=== PATIENT | female | born 1975 | race Caucasian/White ===

== ENCOUNTER → 2016-11-18 | Outpatient (CLI) | payer MEDICAID ==
[2016-11-18 08:03] LABS: Basophils % (A) 1 %; CHCM 33.8; Eosinophils # (A) 0.2 k/uL (0-0.7); Eosinophils % (A) 5 %; HCT 44.2 % (34.0-46.0); HDW 2.54; HGB 14.6 gm/dL (11.4-16.0); Luc # (Auto) 0.13; Luc % (Auto) 3; Lymphocytes # (A) 1.3 k/uL (1.0-4.8); Lymphocytes % (A) 27 %; MCH 30.3 pg (25.0-35.0); MCV 91.9 fL (80.0-100.0); Mean Platelet Volume 6.5; Monocytes # (A) 0.3 k/uL (0-1.0); Monocytes % (A) 7 %; Neutrophils # (A) 2.7 k/uL (1.3-7.7); Neutrophils % (A) 57 %; RBC 4.81 m/uL (3.80-5.40); RDW 12.7 % (11.5-15.5); WBC 4.6 k/uL (3.8-10.6); WBC (Perox) 4.82
[2016-11-18 08:30] LABS: ALT 38 U/L (9-52); AST 21 U/L (14-36); Alkaline Phosphatase 95 U/L (38-126); Anion Gap 12 mmol/L; Blood Urea Nitrogen 18 mg/dL (7-17); Calcium 9.5 mg/dL (8.4-10.2); Carbon Dioxide 26 mmol/L (22-30); Chloride 105 mmol/L (98-107); Cholesterol 194 mg/dL (<200); Glucose 97 mg/dL (74-99); HDL Cholesterol 44 mg/dL (40-60); Non-African American GFR(MDRD) >60 (>60 ml/min/1.73 sqM); Potassium 4.8 mmol/L (3.5-5.1); Sodium 143 mmol/L (137-145); Total Bilirubin 0.8 mg/dL (0.2-1.3); Total Protein 7.3 g/dL (6.3-8.2); Triglycerides 103 mg/dL (<150)
== END | disposition home or self-care (01) ==
LOC: LABWHC1 07:20
PROVIDERS: ATTEND Family Medicine
DX: Z01.419 Encounter for gynecological examination (general) (routine) without abnormal findings (principal); E66.9 Obesity, unspecified; F41.9 Anxiety disorder, unspecified
CPT/HCPCS: 36415; 80053; 80061; 84443; 85025

== ENCOUNTER → 2016-11-24 | Outpatient (CLI) | payer MEDICAID ==
--- NOTE | 2016-11-25 11:32 | MM ---
Reason for exam: screening (asymptomatic). Last mammogram was performed 1 year and 6 months ago. History: Family history of premenopausal breast cancer in mother at age 31, breast cancer in grandmother at age 66, and breast cancer in maternal aunt. Physical Findings: A clinical breast exam by your physician is recommended on an annual basis and results should be correlated with mammographic findings. MG 3D Screening Mammo W/Cad Bilateral CC and MLO view(s) were taken. Prior study comparison: May 29, 2015, bilateral MG screening mammo w CAD. April 27, 2012, bilateral digital screening mammo w/CAD. The breast tissue is heterogeneously dense. This may lower the sensitivity of mammography. There is no discrete abnormality. No significant changes when compared with prior studies. ASSESSMENT: Negative, BI-RAD 1 RECOMMENDATION: Routine screening mammogram of both breasts in 1 year.
== END | disposition home or self-care (01) ==
LOC: RADMAMWWP 07:03
PROVIDERS: ATTEND Family Medicine
DX: Z12.31 Encounter for screening mammogram for malignant neoplasm of breast (principal); Z80.3 Family history of malignant neoplasm of breast
CPT/HCPCS: 77063; G0202

== ENCOUNTER → 2017-08-18 | Outpatient (CLI) | payer MEDICAID ==
--- NOTE | 2017-08-18 14:06 | US ---
EXAMINATION TYPE: US thyroid st tissue head/neck DATE OF EXAM: 08/18/2017 COMPARISON: NONE CLINICAL HISTORY: THYROID MASS E079. Pt states neck swelling, more on right side GLAND SIZE: Right Lobe: 3.7 x 1.3 x 1.3 cm cm Overall Parenchyma: homogenous Left Lobe: 3.9 x 1.2 x 1.3 cm Overall Parenchyma: homogeneous Isthmus Thickness: 0.2 cm Bilateral neck scanned, no evidence of lymphadenopathy. Bilateral thyroid appeared wnl Thyroid gland is overall small in size and homogeneous in appearance without worrisome nodule. IMPRESSION: Small sized thyroid without worrisome greater than 1 cm solid or cystic nodules seen bilaterally.
== END ==
LOC: RADUSWWP 13:37
PROVIDERS: ATTEND Emergency Medicine
DX: E07.9 Disorder of thyroid, unspecified (principal)
CPT/HCPCS: 76536

== ENCOUNTER → 2018-01-06 | Outpatient (CLI) | payer MEDICAID | END | disposition home or self-care (01) | LOC: LABMAIN 09:43 | PROVIDERS: ATTEND Physician Assistant | DX: R05 Cough (principal); R50.9 Fever, unspecified | CPT/HCPCS: 87502 ==

== ENCOUNTER → 2018-04-05 | Outpatient (CLI) | payer MEDICAID ==
--- NOTE | 2018-04-05 13:30 | MM ---
Reason for exam: screening (asymptomatic). Last mammogram was performed 1 year and 4 months ago. History: Family history of premenopausal breast cancer in mother at age 31, breast cancer in grandmother at age 66, and breast cancer in maternal aunt. Physical Findings: A clinical breast exam by your physician is recommended on an annual basis and results should be correlated with mammographic findings. MG 3D Screening Mammo W/Cad Bilateral CC and MLO view(s) were taken. Prior study comparison: November 24, 2016, bilateral MG 3d screening mammo w/cad. May 29, 2015, bilateral MG screening mammo w CAD. The breast tissue is heterogeneously dense. This may lower the sensitivity of mammography. No significant changes when compared with prior studies. ASSESSMENT: Negative, BI-RAD 1 RECOMMENDATION: Routine screening mammogram of both breasts in 1 year.
== END | disposition home or self-care (01) ==
LOC: RADMAMWWP 07:45
PROVIDERS: ATTEND Family Medicine
DX: Z12.31 Encounter for screening mammogram for malignant neoplasm of breast (principal)
CPT/HCPCS: 77063; 77067

== ENCOUNTER → 2018-06-24 | Outpatient (CLI) | payer MEDICAID ==
--- NOTE | 2018-06-24 14:38 | US ---
EXAMINATION TYPE: US transvaginal DATE OF EXAM: 06/24/2018 COMPARISON: Prior pelvic ultrasound May 31, 2015 CLINICAL HISTORY: N83.9 disorder of ovary. dub TECHNIQUE: Transvaginal (TV). Transvaginal sonographic images of the pelvis were acquired. EXAM MEASUREMENTS: Uterus: 8.3 x 4.5 x 5.0 cm Endometrial Stripe: 0.8 cm Right Ovary: 2.7 x 1.7 x 2.3 cm Left Ovary: 2.9 x 1.3 x 2.3 cm 1. Uterus: Anteverted multiple Nabothian cysts 2. Endometrium: wnl, IUD appears appropriately placed 3. Right Ovary: wnl 4. Left Ovary: wnl 5. Bilateral Adnexa: wnl 6. Posterior cul-de-sac: no free fluid seen Central linear hyperdensity consistent with IUD is felt satisfactory in position. Multiple nabothian cysts in the cervix are identified on current study. No free fluid is present. Both ovaries are seen. No suspicious adnexal lesions are present bilaterally. IMPRESSION: No suspicious ovarian or adnexal masses identified. Metallic IUD felt satisfactory in pos ition.
== END | disposition home or self-care (01) ==
LOC: RADUSWWP 14:06
PROVIDERS: ATTEND Family Medicine
DX: N93.8 Other specified abnormal uterine and vaginal bleeding (principal); N83.9 Noninflammatory disorder of ovary, fallopian tube and broad ligament, unspecified; R10.2 Pelvic and perineal pain; Z97.5 Presence of (intrauterine) contraceptive device
CPT/HCPCS: 76830

== ENCOUNTER 2019-12-24 13:19 | Emergency (ER) | payer MEDICAID ==
[2019-12-24] MEDS ORDERED: SODIUM CHLORIDE 0.9% 1,000 ML IV STA (13:37)
[2019-12-24 14:02] LABS: Basophils % (A) 1 %; Eosinophils # (A) 0.1 k/uL (0-0.7); Eosinophils % (A) 1 %; HCT 43.1 % (34.0-46.0); HGB 14.7 gm/dL (11.4-16.0); Lymphocytes % (A) 19 %; MCH 31.1 pg (25.0-35.0); MCHC 34.1 g/dL (31.0-37.0); Monocytes # (A) 0.2 k/uL (0-1.0); Monocytes % (A) 4 %; Neutrophils % (A) 75 %; Platelet Count 391 k/uL (150-450); RBC 4.74 m/uL (3.80-5.40); RDW 12.4 % (11.5-15.5); WBC 5.4 k/uL (3.8-10.6)
--- NOTE | 2019-12-24 14:04 | XR ---
EXAMINATION TYPE: XR chest 2V DATE OF EXAM: 12/24/2019 COMPARISON: 01/09/2009 HISTORY: Chest pain TECHNIQUE: FINDINGS: Heart and mediastinum are normal. Lungs are clear. Diaphragm is normal. Bony thorax appears normal. IMPRESSION: Normal chest. No change.
--- NOTE | 2019-12-24 14:11 | ED ---
Chest Pain HPI - General Chief Complaint: Chest Pain Stated Complaint: chest pain Time Seen by Provider: 12/24/19 13:27 Source: patient, RN notes reviewed Mode of arrival: ambulatory Limitations: no limitations - History of Present Illness Initial Comments: This is a 44-year-old female with no prior history of heart disease or lung disease who presents with complaints of the onset last evening of anterior chest tightness radiating to the center of her back with some feelings of shortness of breath she states is 2-3/10 in severity when it comes on. She had no recent fevers chills nausea vomiting sweats cough or other symptoms she states she is feeling very anxious however and believes this may be part of the etiology. She also has reflux and states it feels somewhat like that. She states she has been having sinus pressure especially on the left No other current modifying factors patient is a nonsmoker. MD Complaint: chest pain - Related Data Home Medications Medication Instructions Recorded Confirmed Famotidine [Pepcid] 20 mg PO ONCE PRN 12/24/19 12/24/19 Mag Hydrox/Aluminum Hyd/Simeth 30 ml PO ONCE PRN 12/24/19 12/24/19 [Mylanta Maximum Strength Liq] Multivitamins, Thera [Multivitamin 1 tab PO DAILY 12/24/19 12/24/19 (formulary)] Vitamin B Complex 1 cap PO DAILY 12/24/19 12/24/19 buPROPion HCL [Wellbutrin SR] 150 mg PO BID 12/24/19 12/24/19 Allergies Allergy/AdvReac Type Severity Reaction Status Date / Time cephalexin monohydrate Allergy Dyspnea Verified 12/24/19 13:24 [From Keflex] latex Allergy Dyspnea Verified 12/24/19 14:07 codeine AdvReac Hallucinati Verified 12/24/19 14:07 ons hydrocodone bitartrate AdvReac Rapid Verified 12/24/19 14:07 [From Vicodin] Heart Rate metoclopramide HCl AdvReac Confusion Verified 12/24/19 14:07 [From Reglan] sulfamethoxazole AdvReac Abdominal Verified 12/24/19 14:07 [From Bactrim] Pain trimethoprim [From Bactrim] AdvReac Abdominal Verified 12/24/19 14:07 Pain Review of Systems ROS Statement: Those systems with pertinent positive or pertinent negative responses have been documented in the HPI. ROS Other: All systems not noted in ROS Statement are negative. EKG Findings - EKG Results: EKG: interpreted by LIBBY CALABRESE (Sinus tachycardia rate of 104. Interval 126 QRS duration 80 QT since QTC 346/[address]-T wave changes) Past Medical History Past Medical History: GERD/Reflux History of Any Multi-Drug Resistant Organisms: None Reported Past Surgical History: Appendectomy, Cholecystectomy, Tonsillectomy Additional Past Surgical History / Comment(s): nose, tailbone Past Psychological History: No Psychological Hx Reported Smoking Status: Never smoker Past Alcohol Use History: Occasional Past Drug Use History: None Reported General Exam - General Exam Comments Initial Comments: This is a well-developed well-nourished awake alert oriented 3 female Limitations: no limitations General appearance: alert, anxious Head exam: Present: atraumatic, normocephalic, normal inspection Eye exam: Present: normal appearance, PERRL, EOMI. Absent: scleral icterus, conjunctival injection, periorbital swelling ENT exam: Present: normal exam, mucous membranes moist Neck exam: Present: normal inspection. Absent: tenderness, meningismus, lymphadenopathy Respiratory exam: Present: normal lung sounds bilaterally, chest wall tenderness (Tenderness palpation along the left costal sternal margin no step-off or crepitation). Absent: respiratory distress, wheezes, rales, rhonchi, stridor Cardiovascular Exam: Present: regular rate, normal rhythm, normal heart sounds. Absent: systolic murmur, diastolic murmur, rubs, gallop, clicks GI/Abdominal exam: Present: soft, normal bowel sounds. Absent: distended, tenderness, guarding, rebound, rigid Extremities exam: Present: normal inspection, full ROM, normal capillary refill. Absent: tenderness, pedal edema, joint swelling, calf tenderness Back exam: Present: normal inspection Neurological exam: Present: alert, oriented X3, CN II-XII intact Psychiatric exam: Present: normal affect, normal mood Skin exam: Present: warm, dry, intact, normal color. Absent: rash Course Vital Signs 12/24/19 12/24/19 13:21 14:27 Temperature 99.2 F Pulse Rate 107 H 97 Respiratory 18 18 Rate Blood Pressure 138/86 119/77 O2 Sat by Pulse 99 99 Oximetry - Reevaluation(s) Reevaluation #1: 12/24/19 14:22 I did review the imaging and report no acute findings. Chest Pain MDM - MDM I did reevaluate the patient she is having intermittent pain but it is repro ducible on the left costal sternal margin. No step-off or crepitation. The presentation is currently consistent with costochondritis she does recall that she was carrying a child recently admitted contributed to it. She was offered Toradol did not want any at this time she'll go home and take her Motrin I did recommend warm compresses. Disposition Clinical Impression: Costochondritis, Chest wall syndrome Disposition: HOME SELF-CARE Condition: Good Instructions (If sedation given, give patient instructions): Costochondritis (ED) Additional Instructions: Warm compresses to the affected area when necessary also it is okay to take your home ibuprofen. Is patient prescribed a controlled substance at d/c from ED?: No Referrals: Robb Mcmillan [Primary Care Provider] - 1-2 days
[2019-12-24 14:14] LABS: ALT 33 U/L (4-34); AST 32 U/L (14-36); African American GFR (CKD) >90 (>60 ml/min/1.73 sqM); Albumin 4.7 g/dL (3.5-5.0); Alkaline Phosphatase 107 U/L (38-126); Anion Gap 7 mmol/L; Blood Urea Nitrogen 17 mg/dL (7-17); Calcium 10.5 mg/dL (8.4-10.2); Carbon Dioxide 28 mmol/L (22-30); Chloride 104 mmol/L (98-107); Creatine Kinase 60 U/L (30-135); Glucose 121 mg/dL (74-99); Non-African American GFR(CKD) 90 (>60 ml/min/1.73 sqM); Potassium 4.1 mmol/L (3.5-5.1); Sodium 139 mmol/L (137-145); Total Bilirubin 0.5 mg/dL (0.2-1.3); Total Protein 7.8 g/dL (6.3-8.2)
[2019-12-24 14:23] LABS: D-Dimer 0.33 mg/L FEU (<0.60); INR 0.9 (<1.2); Prothrombin Time 9.5 sec (9.0-12.0)
[2019-12-24 14:27] LABS: Partial Thromboplastin Time 21.3 sec (22.0-30.0)
[2019-12-24] MEDS ORDERED: KETOROLAC 30 MG/ML 1 ML VIAL IVP STA (14:43)
[2019-12-24 15:24] VITALS: BP 125/81; PULSE 81; RESP 16; TEMP 98.3
== END 2019-12-24 15:24 | disposition home or self-care (01) ==
LOC: EC 13:19
DX: M94.0 Chondrocostal junction syndrome [Tietze] (principal); Z79.899 Other long term (current) drug therapy; Z88.1 Allergy status to other antibiotic agents; Z91.040 Latex allergy status; Z88.5 Allergy status to narcotic agent; Z88.8 Allergy status to other drugs, medicaments and biological substances; Z88.2 Allergy status to sulfonamides; Z53.29 Procedure and treatment not carried out because of patient's decision for other reasons
CPT/HCPCS: 36415; 71046; 80053; 82550; 83690; 83735; 83880; 84484; 85025; 85379; 85610; 85730; 93005; 96360; 99285

== ENCOUNTER → 2020-07-03 | Outpatient (CLI) | payer MEDICAID ==
--- NOTE | 2020-07-03 10:57 | MM ---
Reason for exam: screening (asymptomatic). Last mammogram was performed 2 years and 3 months ago. History: Family history of premenopausal breast cancer in mother at age 31, breast cancer in grandmother at age 66, and breast cancer in maternal aunt. Physical Findings: A clinical breast exam by your physician is recommended on an annual basis and results should be correlated with mammographic findings. MG 3D Screening Mammo W/Cad Bilateral CC and MLO view(s) were taken. Prior study comparison: April 05, 2018, bilateral MG 3d screening mammo w/cad. November 24, 2016, bilateral MG 3d screening mammo w/cad. The breast tissue is heterogeneously dense. This may lower the sensitivity of mammography. Benign appearing bilateral calcifications. No significant changes when compared with prior studies. ASSESSMENT: Benign, BI-RAD 2 RECOMMENDATION: Routine screening mammogram of both breasts in 1 year.
== END | disposition home or self-care (01) ==
LOC: RADMAMWWP 08:57
PROVIDERS: ATTEND Obstetrics & Gynecology
DX: Z12.31 Encounter for screening mammogram for malignant neoplasm of breast (principal)
CPT/HCPCS: 77063; 77067

== ENCOUNTER → 2020-07-17 | Outpatient (CLI) | payer MEDICAID ==
[2020-07-17 11:55] VITALS: BP 131/82; PULSE 77; RESP 20; TEMP 98.3
--- NOTE | 2020-07-17 12:40 | P.HPOB ---
History of Present Illness H&P Date: 07/17/20 Chief Complaint: The patient is here for her routine gynecologic exam. This is a 45-year-old 014 with an LMP of 06/11/2020. She has a ParaGard IUD in place which was placed in 2012. The patient states her menses are monthly but can vary by about 1 week. She states she has had occasional mild hot flashes. She is otherwise without complaints. Review of Systems She has lost about 11 pounds since her last visit here 5 years ago. She denies respiratory or cardiac problems. GI she has had some gastric reflux and has had to restart Nexium when necessary. This has been helpful. Past Medical History Past Medical History: GERD/Reflux Additional Past Medical History / Comment(s): IBS. 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 She has no other history of STDs. ParaGard IUD was placed in 2012. History of Any Multi-Drug Resistant Organisms: None Reported Past Surgical History: Appendectomy, Cholecystectomy, Tonsillectomy Additional Past Surgical History / Comment(s): nose, tailbone. Colonoscopy in her early 30s. Past Psychological History: No Psychological Hx Reported Smoking Status: Never smoker Past Alcohol Use History: Occasional (0-1 per month) Past Drug Use History: None Reported Additional History: She has been since 2014 and this is her second marriage. 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 - Past Family History Mother Family Medical History: Cancer Additional Family Medical History / Comment(s): Breast cancer. Maternal grandmother also had breast cancer. Father Family Medical History: Diabetes Mellitus Medications and Allergies Home Medications Medication Instructions Recorded Confirmed Type Mag Hydrox/Aluminum Hyd/Simeth 30 ml PO ONCE PRN 12/24/19 07/17/20 History [Mylanta Maximum Strength Liq] Multivitamins, Thera [Multivitamin 1 tab PO DAILY 12/24/19 07/17/20 History (formulary)] Vitamin B Complex 1 cap PO DAILY 12/24/19 07/17/20 History buPROPion HCL [Wellbutrin SR] 150 mg PO BID 12/24/19 07/17/20 History Esomeprazole Magnesium [NexIUM] 40 mg PO DAILY 07/17/20 07/17/20 History Paragard Iud 1 device VAGINAL DAILY 07/17/20 07/17/20 History Allergies Allergy/AdvReac Type Severity Reaction Status Date / Time cephalexin monohydrate Allergy Dyspnea Verified 07/17/20 11:51 [From Keflex] latex Allergy Dyspnea Verified 07/17/20 11:51 codeine AdvReac Hallucinati Verified 07/17/20 11:51 ons hydrocodone bitartrate AdvReac Rapid Verified 07/17/20 11:51 [From Vicodin] Heart Rate metoclopramide HCl AdvReac Confusion Verified 07/17/20 11:51 [From Reglan] sulfamethoxazole AdvReac Abdominal Verified 07/17/20 11:51 [From Bactrim] Pain trimethoprim [From Bactrim] AdvReac Abdominal Verified 07/17/20 11:51 Pain Exam Vital Signs Temp Pulse Resp BP Pulse Ox 07/17/20 11:52 98.3 F 77 20 131/82 97 Intake and Output 07/16/20 07/17/20 07/17/20 22:59 06:59 14:59 Other: Weight 75.296 kg Height 5 feet 4 inches, weight 166 pounds, BMI 28.5. This is a well-developed well-nourished white female who is alert and oriented times 3 in no acute distress. HEENT: Within normal limits. NECK: Supple without mass or thyromegaly. CHEST AND LUNGS: Clear to auscultation. HEART: Regular rate and rhythm. BREASTS: Are without mass or discharge. There is bilateral nipple inversion which she states she has had for many years. AXILLARY EXAM: Negative for adenopathy. BACK: Negative for CVA tenderness. There is a mole measuring 7 x 8 mm just of the right of the midline in the mid-portion of the back which appears benign ABDOMEN: Soft, nontender, without palpable masses. PELVIC EXAM: Normal external genitalia. Cervix and vagina appear normal. There is a in IUD string protruding from the cervix approximately 2.5 cm. There is no unusual discharge. There is no evidence of prolapse. The uterus is mi dposition, nongravid size and nontender. There are no palpable adnexal masses or tenderness. RECTAL EXAM: negative for mass or tenderness and is negative for occult blood. EXTREMITIES: Nontender. IMPRESSION: 1. 45-year-old premenopausal female with normal gynecologic exam. 2. ParaGard IUD is in place and was initially placed in 2012. PLAN: 1. Pap smear was performed. She states she had one done about 2 years ago by her PCP and she states it was normal. 2. Self breast awareness was discussed with the patient. 3. Screening mammogram was done on 07/03/2020 and was benign. 4. Osteoporosis prevention was discussed. I have stressed the importance of adequate calcium, vitamin D and regular exercise. Recommended amounts of calcium and vitamin D were also discussed. 5. She was advised to return in one year for her annual well woman exam.
--- NOTE | 2020-07-31 17:04 | P.PN ---
Progress Note - Text Progress Note Date: 07/31/20 OUTPATIENT FOLLOW-UP NOTE TEST(S)/RESULTS: Pap smear done on 07/17/2020 shows ASCUS. High-risk HPV testing is negative. METHOD OF NOTIFICATION: The patient was notified by phone. PATIENT COMMENTS: Her last Pap smear was done through Dr. Mcgowan, her PCP. Her last Pap smear approximately 2016 was negative per the patient. DIAGNOSIS: ASCUS Pap smear with negative high-risk HPV testing. DISCUSSION: Previous Pap smear in 2014 showed low-grade BASSAM. Colposcopic examination by Dr. Mejia at that time showed low-grade BASSAM. We have discussed how the negative high-risk HPV testing is very reassuring. We have also discussed how the ASCUS Pap smear is less abnormal than the previous low- grade BASSAM Pap smear in 2014. PLAN: Pap smear with high-risk HPV testing in 2-3 years. She was advised to return in one year for her annual well woman exam.
== END | disposition home or self-care (01) ==
LOC: WWCWWP 11:15
PROVIDERS: ATTEND Obstetrics & Gynecology
DX: Z53.9 Procedure and treatment not carried out, unspecified reason (principal)

== ENCOUNTER → 2020-08-21 | Outpatient (CLI) | payer MEDICAID ==
[2020-08-21 13:37] VITALS: BP 134/85; PULSE 91; RESP 18; TEMP 98.6
--- NOTE | 2020-08-21 14:45 | P.PN ---
Progress Note - Text Progress Note Date: 08/21/20 Chief Complaint: Vaginal bleeding for 4 weeks HPI: This is a 45-year-old 014 with an LNMP of 06/11/2020. She started having vaginal bleeding on 07/23/2020 and has been having some vaginal bleeding since then. She states that on 07/23/2020 the bleeding started after bearing down hard to have a bowel movement. She has had bleeding which has varied in color ranging from pink to red or brown. She states the bleeding has not been a flow like a menstrual period. She has passed small clots and occasionally has noticed some bits that looked like small pieces of tissue or sand. She has a ParaGard IUD in place since 2012. She has been having some cramping on the right side. She often has had some right-sided discomfort when bearing down even prior to these last few months. She has experienced some hot flashes especially at night during the past year and infrequently during the day. She does feel like she has pelvic pressure and on the pain scale is 01 or 2 out of 10. She denies any urinary tract infection symptoms. ROS: She denies fever, respiratory, cardiac, or GI problems. : She denies dysuria, urinary urgency or frequency. PE: Blood pressure: 134/85, Height: 5 feet 4-1/2 inches, Weight: 171 pounds, Temperature: 98.6, Pulse: 91. Pulse oximeter 99%. This is a well developed, well nourished, weight female who is alert and orientedx3, in no acute distress. Abdomen: Soft with minimal suprapubic tenderness without rebound tenderness. There are no palpable abdominal masses. Pelvic exam: Normal external genitalia. Cervix and vagina reveals small amount of dark menstrual type blood in the back of the vagina. The IUD string protrudes from the cervix approximately 2 cm. There are no vaginal lacerations. There is no cervical motion tenderness, however, the patient does feel pelvic pressure when I push on the cervix. The uterus is mid positioned nongravid size and nontender. There are no palpable adnexal masses or tenderness. Impression: 1. 45-year-old female with a four-week history of dysfunctional uterine bleeding after 40 days of amenorrhea. Differential diagnosis will include anovulatory dysfunctional uterine bleeding, bleeding from a displaced IUD and, less likely, . 2. Mild pelvic discomfort. 3. History of ParaGard IUD placed in 2012. 4. Possible perimenopause. Plan: 1. Blood tests will include FSH and hCG. The order slip was given to the patient for this. 2. Pelvic ultrasound was recommended. We will try to demonstrate the location of the IUD. 3. If the hCG test is negative, she will begin Provera 10 mg 1 daily by mouth 12 days. She will keep a menstrual calendar. She understands that she may have withdrawal bleeding which may be heavier after stopping the Provera after 12 days. The electronic prescription was sent to [facility] pharmacy at [facility] Time spent with the patient: 25 minutes
--- NOTE | 2020-08-22 09:26 | P.PN ---
Progress Note - Text Progress Note Date: 08/22/20 OUTPATIENT FOLLOW-UP NOTE TEST(S)/RESULTS: Test results from 08/21/2020 include FSH which was 7.8 and negative hCG METHOD OF NOTIFICATION: She was notified by phone. PATIENT COMMENTS: DIAGNOSIS: Non and premenopausal dysfunctional uterine bleeding DISCUSSION: We will proceed with a course of Provera 10 mg daily for 12 days. She is also scheduled for her pelvic ultrasound later this month. PLAN: As above
== END | disposition home or self-care (01) ==
LOC: WWCWWP 13:14
PROVIDERS: ATTEND Obstetrics & Gynecology
DX: Z53.9 Procedure and treatment not carried out, unspecified reason (principal)

== ENCOUNTER → 2020-08-21 | Outpatient (CLI) | payer MEDICAID ==
[2020-08-22 01:32] LABS: Follicle Stimulating Hormone 7.8 mIU/mL; HCG,Quantitative Serum <2.0 mIU/mL
== END | disposition home or self-care (01) ==
LOC: LABMAIN 14:47
PROVIDERS: ATTEND Obstetrics & Gynecology
DX: N93.8 Other specified abnormal uterine and vaginal bleeding (principal)
CPT/HCPCS: 36415; 83001; 84702

== ENCOUNTER → 2020-08-29 | Outpatient (CLI) | payer MEDICAID ==
--- NOTE | 2020-08-29 15:38 | US ---
EXAMINATION TYPE: US transvaginal DATE OF EXAM: 08/29/2020 COMPARISON: US CLINICAL HISTORY: Pelvic Pain N93.8. Intermittent right pelvic pain; forty days on menstrual cycle pe r patient; currently has IUD; TECHNIQUE: Transvaginal sonographic images were medically necessary to better assess the following a natomy: IUD and endometrium; patient's bladder was not full, thus TV US was provided to patient. Date of LMP: 40 days ago EXAM MEASUREMENTS: Uterus: 7.6 x 5.7 x 5.1 cm Endometrial Stripe: 1.5 cm Right Ovary: 2.7 x 2.6 x 1.3 cm Left Ovary: 2.9 x 2.8x 1.8 cm 1. Uterus: Retroverted; Multiple Nabothian Cysts seen in cervix with largest = 1.2 x 1.3 x 1.0cm; I UD noted within endometrium 2. Endometrium: unable to correlate thickness with LMP 40 days ago; IUD appears within normal locati on in mid and upper endometrium. 3. Right Ovary: multiple follicles with largest thick walled cyst and peripheral color flow = 1.5 x 1.2 x 1.0cm. 4. Left Ovary: multiple follicles with largest thick walled cyst = 2.0 x 1.6 x 1.6cm Spectral, color and waveform doppler imaging shows good arterial and venous flow within the ovaries ; there is no evidence for ovarian torsion. 5. Bilateral Adnexa: wnl 6. Posterior cul-de-sac: wnl IMPRESSION: 1. Cervical Nabothian cysts. 2. Bilateral ovarian follicles.
--- NOTE | 2020-09-04 13:35 | P.PN ---
Progress Note - Text Progress Note Date: 09/04/20 OUTPATIENT FOLLOW-UP NOTE TEST(S)/RESULTS: Pelvic ultrasound done on 08/29/2020 shows the IUD in the normal position in the endometrium. There are small follicular type cysts noted in both ovaries. METHOD OF NOTIFICATION: The patient was notified by phone. PATIENT COMMENTS: The patient states she did not take the Provera as recommended since when she picked up the medication her bleeding stopped. DIAGNOSIS: Dysfunctional uterine bleeding has resolved on its own. IUD is in normal position by the pelvic ultrasound. DISCUSSION: She had abnormal bleeding for nearly 4 weeks which started on 07/23/2020 and she states ended around 08/23/2020 prior to taking the Provera which was prescribed. PLAN: She will keep a menstrual calendar and call if she is having menstrual problems. She will hold off on taking the Provera at this time.
== END | disposition home or self-care (01) ==
LOC: RADUSWWP 14:45
PROVIDERS: ATTEND Obstetrics & Gynecology
DX: N88.8 Other specified noninflammatory disorders of cervix uteri (principal)
CPT/HCPCS: 76830

== ENCOUNTER → 2020-10-08 | Outpatient (CLI) | payer MEDICAID | END | disposition home or self-care (01) | LOC: LABWHC1 12:51 | PROVIDERS: ATTEND Emergency Medicine | DX: Z20.828 Contact with and (suspected) exposure to other viral communicable diseases (principal) | CPT/HCPCS: 36415; 86769 ==

== ENCOUNTER → 2021-02-28 | Outpatient (CLI) | payer MEDICAID ==
--- NOTE | 2021-04-02 11:29 | P.CEMON ---
This is a 30 day event monitor report. Baseline EKG sinus. Patient remained in sinus rhythm throughout the recording with occasional to frequent unifocal PVCs and episodes of sinus tachycardia. No sustained supraventricular or ventricular arrhythmias noted. No Sigmund bradyarrhythmias noted. Patient complained of occasional dizziness and not lightheadedness, not correlating with any significant events. Occasional correlation with PVCs, which is inconsistent. Final impression: #1. Sinus rhythm. #2. Frequent unifocal PVCs. #3. Patient has several episodes of dizziness and lightheadedness and irregular heartbeat and heart flutter withconsistent correlation with cardiac arrhythmias
--- NOTE | 2021-04-04 11:06 | EM ---
This is a 30 day event monitor report. Baseline EKG sinus. Patient remained in sinus rhythm throughout the recording with occasional to frequent unifocal PVCs and episodes of sinus tachycardia. No sustained supraventricular or ventricular arrhythmias noted. No Sigmund bradyarrhythmias noted. Patient complained of occasional dizziness and not lightheadedness, not correlating with any significant events. Occasional correlation with PVCs, which is inconsistent. Final impression: #1. Sinus rhythm. #2. Frequent unifocal PVCs. #3. Patient has several episodes of dizziness and lightheadedness and irregular heartbeat and heart flutter with consistent correlation with cardiac arrhythmias MTDD
== END | disposition home or self-care (01) ==
LOC: RADECHMAIN 11:58
PROVIDERS: ATTEND Family Medicine
DX: I49.3 Ventricular premature depolarization (principal)
CPT/HCPCS: 93270

== ENCOUNTER → 2021-05-02 | Outpatient (CLI) | payer MEDICAID ==
--- NOTE | 2021-05-02 10:48 | ECHOF ---
Referral Reason:frequent pvcs; R55 Syncope MEASUREMENTS -------- HEIGHT: 162.6 cm WEIGHT: 76.7 kg BP: RVIDd: 2.5 cm (< 3.3) IVSd: 1.0 cm (0.6 - 1.1) LVIDd: 3.2 cm (3.9 - 5.3) LVPWd: 1.0 cm (0.6 - 1.1) IVSs: 1.3 cm LVIDs: 2.6 cm LVPWs: 1.2 cm LA Diam: 3.0 cm (2.7 - 3.8) LAESV Index (A-L): 18.21 ml/m Ao Diam: 2.9 cm (2.0 - 3.7) AV Cusp: 2.0 cm (1.5 - 2.6) MV EXCURSION: 14.881 mm (> 18.000) MV EF SLOPE: 55 mm/s (70 - 150) EPSS: 0.5 cm MV E Matt: 0.52 m/s MV DecT: 167 ms MV A Matt: 0.81 m/s MV E/A Ratio: 0.64 RAP: 5.00 mmHg RVSP: 18.23 mmHg FINDINGS -------- Sinus rhythm. This was a technically good study. The left ventricular size is normal. Overall left ventricular systolic function is low-normal with, an EF between 50 - 55 %. The right ventricle is normal in size. Normal LA size by volume 22+/-6 ml/m2. The right atrial size is normal. The aortic valve is trileaflet, and appears structurally normal. No aortic stenosis or regurgitation. Mild mitral regurgitation is present. Mild tricuspid regurgitation present. Right ventricular systolic pressure is normal at < 35 mmHg. There is no pulmonic regurgitation present. The aortic root size is normal. There is no pericardial effusion. CONCLUSIONS -------- 1. The left ventricular size is normal. 2. Overall left ventricular systolic function is low-normal with, an EF between 50 - 55 %. 3. The right ventricle is normal in size. 4. Normal LA size by volume 22+/-6 ml/m2. 5. The right atrial size is normal. 6. The aortic valve is trileaflet, and appears structurally normal. No aortic stenosis or regurgitati on. 7. Mild mitral regurgitation is present. 8. Mild tricuspid regurgitation present. 9. The aortic root size is normal. 10. There is no pericardial effusion. CERTIFIED RETINAL ANGIOGRAPHER: Padma Bran RDCS
--- NOTE | 2021-05-02 13:32 | ECHOS ---
STRESS ECHOCARDIOGRAM DATE OF SERVICE: May 02, 2021. REFERRING PHYSICIAN: Dr. Sow. INDICATION: Chest pain. BASELINE HEART RATE: 82 BASELINE BLOOD PRESSURE: 121/86 MAXIMUM HEART RATE: 157 MAXIMUM BLOOD PRESSURE: 191/88 85% MPHR: 147 100% MPHR: 173 METS: 8.9 MAXIMUM STAGE REACHED: III TOTAL EXERCISE TIME: 8:50 STRESS DATA: Heart rate is 82, pressure is 121/86 mmHg. Baseline EKG showed sinus mechanism. The patient exercised on the treadmill according to James protocol for a total of 7 minutes and 22 seconds and achieved 8.9 METS. Max heart rate was 157, which is about 91% of maximum predicted heart rate. Maximum blood pressure was 171/58 mmHg. Baseline EKG showed sinus mechanism. The patient exercised on the treadmill according to James protocol for a total of 7 minutes and 22 seconds and achieved 8.9 METS. Max heart rate was 157, which is about 91% of maximum predicted heart rate and maximum blood pressure was 171/88 mmHg. Clinically, she only developed some dizziness and lightheadedness without any chest pain or chest discomfort and without any ST or T-wave abnormalities concerning for ischemia. ECHOCARDIOGRAM IMAGES: On echocardiogram images from parasternal long axis view, parasternal short axis view, apical 4 chamber and apical 2 chambers were obtained as the baseline images, at the peak of the heart rate as well as on recovery. The echocardiogram images showed good augmentation in the left ventricular systolic function without any evidence of wall motion abnormalities concerning for severe underlying coronary artery disease. CONCLUSION: 1. Good exercise tolerance. The patient exercised for almost 8 minutes. 2. Excellent blood pressure and heart rate in response to exercise. 3. No symptoms of chest pain or chest discomfort in response to exercise. Only the patient developed some dizziness and lightheadedness. 4. Normal EKG in response to exercise. 5. Good augmentation in all LV segments in response to exercise without any evidence of wall motion abnormalities concerning for ischemia. 6. Overall normal stress echocardiogram for the patient. MMODL / IJN: [id number] /
== END | disposition home or self-care (01) ==
LOC: RADECHMAIN 08:25
PROVIDERS: ATTEND Internal Medicine Clinical Cardiac Electrophysiology
DX: I08.1 Rheumatic disorders of both mitral and tricuspid valves (principal)
CPT/HCPCS: 93306; 93351; Q9950

== ENCOUNTER → 2021-06-11 | Outpatient (CLI) | payer MEDICAID ==
--- NOTE | 2021-06-11 10:55 | XR ---
EXAMINATION TYPE: XR knee complete LT DATE OF EXAM: 06/11/2021 COMPARISON: NONE HISTORY: Pain TECHNIQUE: Three views are submitted. FINDINGS: Joint spaces are preserved. Osseous structures are intact. No acute fracture seen. Small amount of fluid in the suprapatellar bursa. IMPRESSION: 1. No acute fracture or dislocation.
== END | disposition home or self-care (01) ==
LOC: RADXRMAIN 09:57
PROVIDERS: ATTEND Family Medicine
DX: M25.562 Pain in left knee (principal)

== ENCOUNTER → 2021-08-22 | Outpatient (CLI) | payer MEDICAID | END | disposition home or self-care (01) | LOC: LABMAIN 04:35 | PROVIDERS: ATTEND Emergency Medicine | DX: Z20.822 Contact with and (suspected) exposure to COVID-19 (principal) | CPT/HCPCS: 87635 ==

== ENCOUNTER → 2021-09-13 | Outpatient (CLI) | payer MEDICAID | END | disposition home or self-care (01) | LOC: LABMAIN 12:34 | PROVIDERS: ATTEND Emergency Medicine | DX: U07.1 COVID-19 (principal) | CPT/HCPCS: 36415; 86769 ==

== ENCOUNTER → 2021-10-13 | Outpatient (CLI) | payer MEDICAID | END | disposition home or self-care (01) | LOC: LABWHC1 15:29 | PROVIDERS: ATTEND Emergency Medicine | DX: U07.1 COVID-19 (principal) | CPT/HCPCS: 87635 ==

== ENCOUNTER → 2023-03-04 | Outpatient (CLI) | payer MEDICAID ==
[2023-03-04 08:11] LABS: Appearance,Urine Clear (Clear); Bacteria,Urine Rare /hpf; Bilirubin,Urine Negative (Negative); Blood,Urine Trace (Negative); Color,Urine Light Yellow; Glucose,Urine (UA) Negative (Negative); Hyaline Casts,Urine 1 /lpf (0-2); Ketones,Urine Negative (Negative); Leukocyte Esterase,Urine Large (Negative); Nitrite,Urine Negative (Negative); PH, Urine 6.5 (5.0-8.0); Protein,Urine Negative (Negative); Specific Gravity,Urine 1.011 (1.001-1.035); Squamous Epithelial Cell,Urine 1 /hpf (0-4); Urobilinogen,Urine <2.0 mg/dL (<2.0); WBC,Urine 2 /hpf (0-5)
== END | disposition home or self-care (01) ==
LOC: LABMAIN 07:45
PROVIDERS: ATTEND Physician Assistant
DX: R30.0 Dysuria (principal)
CPT/HCPCS: 81001

== ENCOUNTER → 2023-03-24 | Outpatient (CLI) | payer MEDICAID ==
[2023-03-24 10:29] VITALS: BP 119/86; PULSE 77; RESP 16; TEMP 97.8
--- NOTE | 2023-03-24 14:14 | P.HPOB ---
History of Present Illness H&P Date: 03/24/23 Chief Complaint: The patient is here for her routine gynecologic exam. This is a 48-year-old 014 with an LMP of 03/18/2023. She has a ParaGard in place and this has been in place since 2012. She did have 4 months of amenorrhea in a row in 2021, but since then she has been having monthly menstrual periods. Does have occasional hot flashes and night sweats but these are mild. She has had occasional spotting after sex especially right before a menstrual period. She has also been experiencing some achy right pelvic pain which she thinks might be her ovary during the past several months right before her menstrual period. She recently broke up with her and she is requesting STD screening. She states she did have blood STD testing earlier this year through her PCP which was negative per the patient. She denies any unusual discharge or genital symptoms. She states she was treated for Trichomonas that she believes was given to her by her . She denies any new sexual partners Review of Systems The patient has gained 19 pounds over the last year. She denies respiratory, cardiac, or G.I. problems. Past Medical History Past Medical History: GERD/Reflux Additional Past Medical History / Comment(s): IBS. 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 She has no other history of STDs. ParaGard IUD was placed in 2012. History of Any Multi-Drug Resistant Organisms: None Reported Past Surgical History: Appendectomy, Cholecystectomy, Tonsillectomy Additional Past Surgical History / Comment(s): nose, tailbone. Colonoscopy in her early 30s. Past Psychological History: No Psychological Hx Reported Smoking Status: Never smoker Past Alcohol Use History: Occasional (2 per month.) Past Drug Use History: None Reported Additional History: She has been since 2014 and this is her second marriage. She states she and her have in 2022. 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 - Past Family History Mother Family Medical History: Cancer Additional Family Medical History / Comment(s): Breast cancer. Maternal grandmother also had breast cancer. Father Family Medical History: Diabetes Mellitus Medications and Allergies Home Medications Medication Instructions Recorded Confirmed Type buPROPion HCL [Wellbutrin SR] 150 mg PO BID 12/24/19 03/24/23 History Esomeprazole Magnesium [NexIUM] 40 mg PO DAILY 07/17/20 03/24/23 History Paragard Iud 1 device VAGINAL DAILY 07/17/20 03/24/23 History Fexofenadine/Pseudoephedrine 1 each PO DAILY PRN 08/21/20 03/24/23 History [Thao-D 24 Hour Tablet] Fluticasone Nasal [place] [Flonase 2 spr EA NOSTRIL DAILY #16 gm 09/12/22 03/24/23 Rx Nasal [place]] Allergies Allergy/AdvReac Type Severity Reaction Status Date / Time cephalexin monohydrate Allergy Dyspnea Verified 03/24/23 10:24 [From Keflex] latex Allergy Dyspnea Verified 03/24/23 10:24 codeine AdvReac Hallucinati Verified 03/24/23 10:24 ons hydrocodone bitartrate AdvReac Rapid Verified 03/24/23 10:24 [From Vicodin] Heart Rate metoclopramide HCl AdvReac Confusion Verified 03/24/23 10:24 [From Reglan] sulfamethoxazole AdvReac Abdominal Verified 03/24/23 10:24 [From Bactrim] Pain trimethoprim [From Bactrim] AdvReac Abdominal Verified 03/24/23 10:24 Pain Exam Vital Signs Temp Pulse Resp BP Pulse Ox 03/24/23 10:25 97.8 F 77 16 119/86 97 Intake and Output 03/23/23 03/24/23 03/24/23 22:59 06:59 14:59 Other: Weight 83.007 kg Height 5 feet 4 inches, weight 183 pounds, BMI 31.4. This is a well-developed well-nourished white female who is alert and oriented times 3 in no acute distress. HEENT: Within normal limits. NECK: Supple without mass or thyromegaly. CHEST AND LUNGS: Clear to auscultation. HEART: Regular rate and rhythm. BREASTS: Are without mass or discharge. There is bilateral central nipple inversion which she states she has had for many years. AXILLARY EXAM: Negative for adenopathy. BACK: Negative for CVA tenderness. ABDOMEN: Soft, nontender, without palpable masses. PELVIC EXAM: Normal external genitalia. The vagina appears normal. There is no unusual discharge. The cervix has a benign-appearing polyp measuring approximately 7 x 4 mm protruding from the cervix. The IUD string is visible and measures approximately 1 cm. The cervix is slightly friable upon doing the Pap smear and infection screening. There is no cervical motion tenderness. There is no evidence of prolapse. The uterus is midposition, nongravid size and nontender. There are no palpable adnexal masses. There is mild right adnexal tenderness. The left adnexa is nontender. RECTAL EXAM: negative for mass or tenderness. There was a small amount of blood in the perineal area from the speculum exam and Hemoccult testing was not done from the rectal exam because of this. EXTREMITIES: Nontender. IMPRESSION: 1. 48-year-old perimenopausal female with slight menstrual irregularity who has a ParaGard IUD in place. 2. Benign-appearing cervical polypoid tissue measuring approximately 7 x 4 mm. This may be related to the occasional post coital spotting she has noted. 3. Right pelvic pain especially just prior to menstrual periods with mild right adnexal tenderness. Differential diagnosis will include right ovarian cyst, ovulatory discomfort, and pelvic adhesions. At this time I doubt PID or uterine perforation from the IUD. 4. Previous ASCUS Pap smear with negative high-risk HPV testing on 07/17/2020 and 11/19/2021. PLAN: 1. Pap smear cotest was performed. 2. GC and Chlamydia testing was obtained from the cervix. Affirm vaginitis panel was obtained from the vagina. STD screening with blood tests was deferred since she states she had this done through her PCP and was negative. 3. Pelvic ultrasound was recommended and the order slip was given to the patient for this. 4. Stress the option of removal of the cervical polyp. Since it has a benign appearance she would like to proceed with conservative management. If she continues to have postcoital spotting or abnormal vaginal bleeding, or if significant Pap smear abnormality is noted, we will consider removing this polypoid growth. 5. STD prevention was discussed. She states she will be abstinent at this time . I stressed importance of limiting sexual partners and I recommended condom use if she is sexually active. 6. She was advised to return in one year for her annual well woman exam and as needed.
== END ==
LOC: WWCWWP 10:18
PROVIDERS: ATTEND Obstetrics & Gynecology
DX: Z01.419 Encounter for gynecological examination (general) (routine) without abnormal findings (principal); N95.9 Unspecified menopausal and perimenopausal disorder; K21.9 Gastro-esophageal reflux disease without esophagitis; A74.9 Chlamydial infection, unspecified; N73.6 Female pelvic peritoneal adhesions (postinfective); N83.201 Unspecified ovarian cyst, right side; N84.1 Polyp of cervix uteri; K58.9 Irritable bowel syndrome, unspecified; Z80.3 Family history of malignant neoplasm of breast; Z88.2 Allergy status to sulfonamides; Z88.5 Allergy status to narcotic agent; Z88.1 Allergy status to other antibiotic agents; Z88.8 Allergy status to other drugs, medicaments and biological substances; Z90.49 Acquired absence of other specified parts of digestive tract; Z91.040 Latex allergy status; Z97.5 Presence of (intrauterine) contraceptive device

== ENCOUNTER → 2023-04-17 | Outpatient (CLI) | payer MEDICAID ==
--- NOTE | 2023-04-17 12:00 | US ---
EXAMINATION TYPE: US pelvic complete DATE OF EXAM: 04/17/2023 COMPARISON: US CLINICAL INDICATION: Female, 48 years old with history of R10.2 PELVIC PAIN; Pt states RLQ pain, IUD in place x 10 years TECHNIQUE: Transabdominal (TA). Transabdominal sonographic images of the pelvis were acquired. Date of LMP: 04/16/2023 EXAM MEASUREMENTS: Uterus: 8.7 x 5.1 x 6.2 cm Endometrial Stripe: 0.6 cm Right Ovary: 2.7 x 2.1 x 1.2 cm Left Ovary: 2.9 x 2.6 x 1.9 cm 1. Uterus: Anteverted IUD in upper endometrial canal, Multiple Nabothian cysts in cervix 2. Endometrium: wnl 3. Right Ovary: wnl 4. Left Ovary: Dominant follicle= 1.5 cm 5. Bilateral Adnexa: wnl 6. Posterior cul-de-sac: wnl Urinary bladder is sonolucent. Posterior wall is normal. IMPRESSION: 1. IUD positioned within the endometrial canal. 2. Left ovarian cyst
--- NOTE | 2023-04-17 13:21 | P.PN ---
Progress Note - Text Progress Note Date: 04/17/23 OUTPATIENT FOLLOW-UP NOTE TEST(S)/RESULTS: Pelvic ultrasound on 04/17/2023 showed a 1.5 cm follicular-type cyst on the left ovary. The right ovary was within normal limits. The uterus revealed an IUD properly positioned and the endometrial cavity. METHOD OF NOTIFICATION: The patient was notified by phone on 04/17/2023. PATIENT COMMENTS: Patient believes she is getting a yeast infection after taking Flagyl for BV. She has noticed some genital itching and a slight cottage cheeselike discharge. She is on the last day of taking her Flagyl. DIAGNOSIS: Normal pelvic ultrasound with normal IUD placement and small follicular physiologic left ovarian cyst. DISCUSSION: I will treat her with Diflucan 150 mg by mouth every 48 hours 2 doses. The electronic prescription will be sent to [facility] pharmacy in [facility]. She was instructed to call she's having increasing right pelvic pain or intermenstrual bleeding. PLAN: As above. She was advised to return in one year for her annual well woman exam and as needed.
--- NOTE | 2023-04-20 08:09 | MM ---
Reason for Exam: Screening (asymptomatic). Last mammogram was performed 1 year(s) and 5 month(s) ago. Patient History: Menarche at age 11. First Full-Term at age 16. Perimenopausal. Maternal grandmother had breast cancer, age 66. Maternal aunt had breast cancer. Mother had breast cancer, age 31. Risk Values: Enriqueta 5 year model risk: 1.7%. NCI Lifetime model risk: 16.3%. Prior Study Comparison: 04/05/2018 Bilateral Screening Mammogram, [facility]. 07/03/2020 Bilateral Screening Mammogram, [facility]. 11/19/2021 Bilateral Screening Mammogram, [facility]. Tissue Density: The breast tissue is heterogeneously dense. This may lower the sensitivity of mammography. Findings: Analyzed By CAD. There is no suspicious group of microcalcifications or new suspicious mass in either breast. Overall Assessment: Benign, BI-RAD 2 Management: Screening Mammogram of both breasts in 1 year. . Patient should continue monthly self-breast exams. A clinical breast exam by your physician is recommended on an annual basis. This exam should not preclude additional follow-up of suspicious palpable abnormalities. Note on Enriqueta scores and lifetime risk: 1. A Enriqueta score greater than 3% is considered moderate risk. If this is the case, consider specialist referral to assess eligibility for a risk reducing agent. 2. If overall lifetime risk for the development of breast cancer is 20% or higher, the patient may qualify for future screening with alternating mammogram and breast MRI. Electronically signed and approved by: Dimas Webster M.D. Radiologis
== END | disposition home or self-care (01) ==
LOC: RADUSWWP 10:19
PROVIDERS: ATTEND Obstetrics & Gynecology
DX: Z12.31 Encounter for screening mammogram for malignant neoplasm of breast (principal); N83.202 Unspecified ovarian cyst, left side; R10.2 Pelvic and perineal pain; Z97.5 Presence of (intrauterine) contraceptive device; Z80.3 Family history of malignant neoplasm of breast
CPT/HCPCS: 76856; 77063; 77067

== ENCOUNTER 2023-05-10 13:45 | Emergency (ER) | payer MEDICAID ==
[2023-05-10 13:52] VITALS: BP 152/71; PULSE 84; RESP 16; TEMP 98.6
[2023-05-10] MEDS ORDERED: TOPICAL SKIN ADHESIVE 1 EACH AMP TOPICAL ONE (13:52)
--- NOTE | 2023-05-10 13:56 | ED ---
Wound/Laceration HPI - General Chief Complaint: Wound/Laceration Stated Complaint: facial laceration Time Seen by Provider: 05/10/23 13:52 Source: patient, RN notes reviewed Mode of arrival: ambulatory Limitations: no limitations - History of Present Illness Initial Comments: This is a 48-year-old female who presents to the emergency department for a fac ial laceration. States that she was remodeling her house, when a light fixture came down and hit her in the right cheek. Her tetanus vaccine is up-to-date. She does complain of some mild pain. Denies any loss of consciousness. Not taking any blood thinners. Denies any fevers, chills, sore throat, cough, dyspnea, chest pain, palpitations, abdominal pain, nausea, vomiting, diarrhea, or back pain. - Related Data Home Medications Medication Instructions Recorded Confirmed buPROPion HCL [Wellbutrin SR] 150 mg PO BID 12/24/19 03/24/23 Esomeprazole Magnesium [NexIUM] 40 mg PO DAILY 07/17/20 03/24/23 Paragard Iud 1 device VAGINAL DAILY 07/17/20 03/24/23 Fexofenadine/Pseudoephedrine 1 each PO DAILY PRN 08/21/20 03/24/23 [Thao-D 24 Hour Tablet] Previous Rx's Medication Instructions Recorded Fluticasone Nas[address] [Flonase 2 spr EA NOSTRIL DAILY #16 g[address] 09/12/[address]] metroNIDAZOLE [Flagyl] 500 mg PO BID 7 Days #14 tab 04/08/23 Fluconazole [Diflucan] 150 mg PO DIRECTED #2 tab 04/17/23 Ibuprofen [Motrin] 800 mg PO Q6HR #60 tab 05/01/23 Allergies Allergy/AdvReac Type Severity Reaction Status Date / Time cephalexin monohydrate Allergy Dyspnea Verified 05/10/23 13:52 [From Keflex] latex Allergy Dyspnea Verified 05/10/23 13:52 codeine AdvReac Hallucinati Verified 05/10/23 13:52 ons hydrocodone bitartrate AdvReac Rapid Verified 05/10/23 13:52 [From Vicodin] Heart Rate metoclopramide HCl AdvReac Confusion Verified 05/10/23 13:52 [From Reglan] sulfamethoxazole AdvReac Abdominal Verified 05/10/23 13:52 [From Bactrim] Pain trimethoprim [From Bactrim] AdvReac Abdominal Verified 05/10/23 13:52 Pain Review of Systems ROS Statement: Those systems with pertinent positive or pertinent negative responses have been documented in the HPI. ROS Other: All systems not noted in ROS Statement are negative. 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 She has no other history of STDs. ParaGard IUD was placed in 2012. History of Any Multi-Drug Resistant Organisms: None Reported Past Surgical History: Appendectomy, Cholecystectomy, Tonsillectomy Additional Past Surgical History / Comment(s): nose, tailbone. Colonoscopy in her early 30s. Past Psychological History: No Psychological Hx Reported Smoking Status: Never smoker Past Alcohol Use History: Occasional Past Drug Use History: None Reported - Past Family History Mother Family Medical History: Cancer Additional Family Medical History / Comment(s): Breast cancer. Maternal grandmother also had breast cancer. Father Family Medical History: Diabetes Mellitus General Exam Limitations: no limitations General appearance: alert, in no apparent distress Head exam: Present: normocephalic, other (1 cm jagged vertical laceration to the right cheek. No active bleeding.) Respiratory exam: Present: normal lung sounds bilaterally. Absent: respiratory distress, wheezes, rales, rhonchi, stridor Cardiovascular Exam: Present: regular rate, normal rhythm, normal heart sounds. Absent: systolic murmur, diastolic murmur, rubs, gallop, clicks Neurological exam: Present: alert, oriented X3, CN II-XII intact Psychiatric exam: Present: normal affect, normal mood Course Vital Signs 05/10/23 13:50 Temperature 98.6 F Pulse Rate 84 Respiratory 16 Rate Blood Pressure 152/71 O2 Sat by Pulse 97 Oximetry Procedures - Laceration Laceration #1 Consent Obtained: verbal consent Indication: laceration Site: face Size (cm): 1 Description: irregular Depth: simple, single layer Size of Sutures: other (Exofin) Medical Decision Making - Medical Decision Making This is a 48-year-old female who presents to the emergency department for a facial laceration. Was pt. sent in by a medical professional or institution? @ -No Did you speak to anyone other than the patient for history? @ -No Did you review nursing and triage notes? @ -Yes, and I agree, it is accurate with regards to the patient's symptoms. Were old charts reviewed? @ -No Differential Diagnosis? @ -Not applicable EKG interpreted by me (3pts min.)? @ -Not obtained X-rays interpreted by me (1pt min.)? @ -Not obtained CT interpreted by me (1pt min.)? @ -Not obtained U/S interpreted by me (1pt. min.)? @ -Not obtained What testing was considered but not performed? (CT, X-rays, U/S, labs)? Why? @ -None What meds were considered but not given? Why? @ -None Did you discuss the management of the patient with other professionals? @ -No Did you reconcile home meds? @ -No Was smoking cessation discussed for >3mins.? @ -No Was critical care preformed (if so, how long)? @ -No Were there social determinants of health that impacted care today? How? (Homelessness, low income, unemployed, alcoholism, drug addiction, transportation, low edu. Level, literacy, decrease access to med. care, care home, rehab)? @ -No Was there de-escalation of care discussed even if they declined? (Discuss DNR or withdrawal of care, Hospice)? @ -No What co-morbidities impacted this encounter? (DM, HTN, Smoking, COPD, CAD, Cancer, CVA, Hep., AIDS, mental health diagnosis, sleep apnea, morbid obesity)? @ -None Was patient admitted / discharged? @ -Discharged. Discussed the option of sutures versus skin adhesive closure. Patient requests to proceed with skin adhesive closure. Exofin was used to close the wound. Tetanus vaccine is already up-to-date. Advised ibuprofen and Tylenol as need for pain relief. Undiagnosed new problem with uncertain prognosis? @ -None Drug Therapy requiring intensive monitoring for toxicity (Heparin, Nitro, Insulin, Cardizem)? @ -None Were any procedures done? @ -Laceration repair with exofin. Diagnosis/symptom? @ -Facial laceration Acute, or Chronic, or Acute on Chronic? @ -Acute Uncomplicated (without systemic symptoms) or Complicated (systemic symptoms)? @ -Uncomplicated Side effects of treatment? @ -None Exacerbation, Progression, or Severe Exacerbation] @ -Not applicable Poses a threat to life or bodily function? @ -No Return precautions reviewed in depth, the patient is instructed to return to the emergency department with any new, worsening, or concerning symptoms. Patient verbalized understanding. This case was discussed in detail with the attending ED physician, Dr. Concepcion. Presentation, findings, and treatment plan discussed in detail as well. Disposition Clinical Impression: Laceration Disposition: HOME SELF-CARE Instructions (If sedation given, give patient instructions): Skin Adhesive Care (ED) Additional Instructions: Return to the emergency department with any new, worsening, or concerning symptoms. Alternate with ibuprofen and Tylenol as needed for pain relief. Keep the area dry, do not apply topical medications, and do not rub, scratch, or pick at the wound. The adhesive will naturally fall off within 5-10 days. Follow up with your primary care provider in 1-2 days. Is patient prescribed a controlled substance at d/c from ED?: No Referrals: Dustin Galvez MD [Primary Care Provider] - 1-2 days
== END 2023-05-10 15:00 | disposition home or self-care (01) ==
LOC: EC 13:45
DX: S01.411A Laceration without foreign body of right cheek and temporomandibular area, initial encounter (principal); K21.9 Gastro-esophageal reflux disease without esophagitis; Z79.899 Other long term (current) drug therapy; Z88.1 Allergy status to other antibiotic agents; Z88.2 Allergy status to sulfonamides; Z88.5 Allergy status to narcotic agent; Z91.040 Latex allergy status; Z88.8 Allergy status to other drugs, medicaments and biological substances; W22.8XXA Striking against or struck by other objects, initial encounter; Y92.009 Unspecified place in unspecified non-institutional (private) residence as the place of occurrence of the external cause
CPT/HCPCS: 12011; 99282

== ENCOUNTER → 2023-10-27 | Outpatient (CLI) | payer MEDICAID ==
--- NOTE | 2023-10-27 08:01 | XR ---
EXAMINATION TYPE: XR cervical spine limited DATE OF EXAM: 10/27/2023 7:53 AM CLINICAL INDICATION:Female, 48 years old with history of M54.2 Neck Pain; [facility] COMPARISON: None TECHNIQUE: The cervical spine was imaged in frontal, lateral, and odontoid. FINDINGS: The osseous structures show normal alignment without evidence of an acute fracture. There are osteoph ytes noted throughout the cervical spine on the anterior and lateral aspects of the vertebral bodies. The intervertebral disk spaces are narrowed at multiple levels Pedicles are intact. Soft tissues ar e within normal limits. The odontoid appears intact. IMPRESSION: 1. No fracture or dislocation. 2. Mild degenerative disc disease changes of the cervical spine.
== END | disposition home or self-care (01) ==
LOC: RADXRMAIN 06:55
PROVIDERS: ATTEND Family Medicine
DX: M50.30 Other cervical disc degeneration, unspecified cervical region (principal)
CPT/HCPCS: 72040

== ENCOUNTER → 2024-04-19 | Outpatient (CLI) | payer MEDICAID ==
[2024-04-19 07:50] LABS: Appearance,Urine Clear (Clear); Bacteria,Urine Rare /hpf; Bilirubin,Urine Negative (Negative); Blood,Urine Negative (Negative); Color,Urine Light Yellow; Glucose,Urine (UA) Negative (Negative); Hyaline Casts,Urine 1 /lpf (0-2); Ketones,Urine Negative (Negative); Leukocyte Esterase,Urine Large (Negative); Mucus,Urine Rare /hpf; Nitrite,Urine Negative (Negative); PH, Urine 6.5 (5.0-8.0); Protein,Urine Negative (Negative); RBC,Urine 1 /hpf (0-5); Specific Gravity,Urine 1.015 (1.001-1.035); Squamous Epithelial Cell,Urine 8 /hpf (0-4); Urobilinogen,Urine <2.0 mg/dL (<2.0); WBC,Urine 3 /hpf (0-5)
== END | disposition home or self-care (01) ==
LOC: LABWHC1 07:11
PROVIDERS: ATTEND Physician Assistant
DX: R39.15 Urgency of urination (principal)
CPT/HCPCS: 81001

== ENCOUNTER → 2024-05-31 | Outpatient (CLI) | payer MEDICAID ==
[2024-05-31 10:54] VITALS: BP 126/81; PULSE 79; RESP 16; TEMP 98.3
--- NOTE | 2024-05-31 11:35 | P.HPOB ---
History of Present Illness H&P Date: 05/31/24 Chief Complaint: The patient is here for her routine gynecologic exam and ma mmogram. This is a 57-year-old -0-1-4 with an LNMP of 11/22/2023. She has a ParaGard IUD in place since 2012. Menstrual periods have been somewhat infrequent and irregular since about 2021. She had a fairly normal period in November. Since then she has had intermittent brownish discharge that has been coming about monthly. At the times of the discharge she notices some vaginal and vulvar itching, like a yeast infection. She also can notice a fishy type of an odor at times. She states she occasionally has some hot flashes about a week before the discharge. She also infrequently has what she thinks may be ovulation type pains. She and her have been for more than 1 year, but she still is occasionally sexually active with him. She denies sexual activity with anyone else. She does not believe that he is sexually active with others. Review of Systems The patient has gained 6 pounds over the last year. She denies respiratory, cardiac, or G.I. problems. Past Medical History Past Medical History: GERD/Reflux Additional Past Medical History / Comment(s): IBS. 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 She has no other history of STDs. ParaGard IUD was placed in 2012. History of Any Multi-Drug Resistant Organisms: None Reported Past Surgical History: Appendectomy, Cholecystectomy, Tonsillectomy Additional Past Surgical History / Comment(s): nose, tailbone. Colonoscopy in her early 30s. Past Psychological History: No Psychological Hx Reported Smoking Status: Never smoker Past Alcohol Use History: Occasional (About 2 drinks per month.) Past Drug Use History: None Reported Additional History: She has been since 2014 and this is her second marriage. She states she and her have been since 2022, but are still occasionally sexually active. They live separately. 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 - Past Family History Mother Family Medical History: Cancer Additional Family Medical History / Comment(s): Breast cancer. Maternal grandmother also had breast cancer. Father Family Medical History: Diabetes Mellitus Medications and Allergies Home Medications Medication Instructions Recorded Confirmed Type buPROPion HCL [Wellbutrin SR] 150 mg PO BID 12/24/19 03/24/23 History Esomeprazole Magnesium [NexIUM] 40 mg PO DAILY 07/17/20 03/24/23 History Paragard Iud 1 device VAGINAL DAILY 07/17/20 03/24/23 History Fexofenadine/Pseudoephedrine 1 each PO DAILY PRN 08/21/20 03/24/23 History [Thao-D 24 Hour Tablet] Fluticasone Nasal [place] [Flonase 2 spr EA NOSTRIL DAILY #16 gm 09/12/22 03/24/23 Rx Nasal Onset] Fluconazole [Diflucan] 150 mg PO DIRECTED #2 tab 04/17/23 Rx Ibuprofen [Motrin] 800 mg PO Q6HR #60 tab 05/01/23 Rx Allergies Allergy/AdvReac Type Severity Reaction Status Date / Time cephalexin monohydrate Allergy Dyspnea Verified 05/31/24 10:50 [From Keflex] latex Allergy Dyspnea Verified 05/31/24 10:50 codeine AdvReac Hallucinati Verified 05/31/24 10:50 ons hydrocodone bitartrate AdvReac Rapid Verified 05/31/24 10:50 [From Vicodin] Heart Rate metoclopramide HCl AdvReac Confusion Verified 05/31/24 10:50 [From Reglan] sulfamethoxazole AdvReac Abdominal Verified 05/31/24 10:50 [From Bactrim] Pain trimethoprim [From Bactrim] AdvReac Abdominal Verified 05/31/24 10:50 Pain Exam Vital Signs Temp Pulse Resp BP Pulse Ox 05/31/24 10:52 98.3 F 79 16 126/81 97 Intake and Output 05/30/24 05/31/24 05/31/24 22:59 06:59 14:59 Other: Weight 85.729 kg Height 5 feet 2 inches, weight 189 pounds, BMI 34.6. This is a well-developed well-nourished white female who is alert and oriented times 3 in no acute distress. HEENT: Within normal limits. NECK: Supple without mass or thyromegaly. CHEST AND LUNGS: Clear to auscultation. HEART: Regular rate and rhythm. BREASTS: Are without mass or discharge. There is a central bilateral nipple inversion which the patient states she has had for many years. AXILLARY EXAM: Negative for adenopathy. BACK: Negative for CVA tenderness. ABDOMEN: Soft, nontender, without palpable masses. PELVIC EXAM: Normal external genitalia. Cervix and vagina appear normal with an IUD string protruding from the cervix about 2 cm. There is a slight thin brownish discharge in the vagina with minimal odor. The cervix is somewhat friable. There is no cervical motion tenderness. There is no evidence of prolapse. The uterus is midposition, nongravid size and nontender. There are no palpable adnexal masses or tenderness. RECTAL EXAM: Rectovaginal exam is negative for mass or tenderness and is negative for occult blood. EXTREMITIES: Nontender. IMPRESSION: 1. 49-year-old perimenopausal female with a ParaGard IUD in place. 2. Intermittent brownish discharge about monthly. This may represent very light menstrual periods. Differential diagnosis will also include bacterial vaginosis, trichomonas, gonorrhea, chlamydia, and Myrna vaginitis. PLAN: 1. Pap smear was deferred since she had a negative Pap smear cotest on 03/24/2023. Because of previous abnormal Pap smears, we will plan on repeating this after 2 to 3 years from her last 1. 2. Self breast awareness was discussed with the patient. We have also discussed symptoms associated with inflammatory breast cancer. 3. Screening mammogram will be done today. 4. Affirm vaginitis panel was obtained from the vagina. GC and Chlamydia testing was also obtained from the cervix. 5. Unknown drawing an FSH and estradiol testing. The order slip was given to the patient for this. 6. STD prevention was discussed. Have stressed the importance of a monogamous relationship. I have also recommended that she use condoms if she is sexually active. We have discussed possible risk with still being sexually active with her since it could possibly not be a monogamous relationship. 7. She will keep a menstrual calendar as well as a symptom calendar. She will return if problems. 8. She was advised to return in one year for her annual well woman exam and as needed.
== END ==
LOC: WWCWWP 10:34
PROVIDERS: ATTEND Obstetrics & Gynecology
DX: Z12.31 Encounter for screening mammogram for malignant neoplasm of breast (principal); B37.31 Acute candidiasis of vulva and vagina; Z97.5 Presence of (intrauterine) contraceptive device; Z78.0 Asymptomatic menopausal state; Z80.3 Family history of malignant neoplasm of breast; Z88.1 Allergy status to other antibiotic agents; Z88.8 Allergy status to other drugs, medicaments and biological substances; Z88.2 Allergy status to sulfonamides; Z88.5 Allergy status to narcotic agent; Z91.040 Latex allergy status

== ENCOUNTER → 2024-06-01 | Outpatient (CLI) | payer MEDICAID ==
[2024-06-01 10:53] LABS: Estradiol 70.4 pg/mL
[2024-06-01 11:44] LABS: Follicle Stimulating Hormone 45.2 mIU/mL
--- NOTE | 2024-06-02 14:43 | P.PN ---
Progress Note - Text Progress Note Date: 06/02/24 Test results from 05/31/24 included Affirm vaginitis panel that was positive for Gardnerella. This was negative for Myrna and Trichomonas. Blood test results from 06/01/24 included FSH of 45 and estradiol of 70. The patient was notified of these results by phone on 06/02/24. The patient says she was treated for bacterial vaginosis many years ago. She says she has been having intermittent fishy vaginal odor. Impression: Bacterial Vaginosis. Perimenopause with menstrual irregularity. Plan: Metronidazole 500mg PO BID x 7 days. The electronic prescription was sent to [facility] in [facility]. She was advised to not drink alcohol while on this medication. Await GC and Chlamydia test results, which are pending.
== END | disposition home or self-care (01) ==
LOC: LABWHC1 07:28
PROVIDERS: ATTEND Obstetrics & Gynecology
DX: N91.4 Secondary oligomenorrhea (principal)
CPT/HCPCS: 36415; 82670; 83001

== ENCOUNTER 2025-04-27 12:39 | Inpatient (IN) | payer MEDICAID ==
--- NOTE | 2025-04-27 13:18 | ED ---
General Adult HPI - General Chief complaint: Recheck/Abnormal Lab/Rx Stated complaint: Animal Bite Time Seen by Provider: 04/27/25 12:45 Source: patient, RN notes reviewed, old records reviewed Mode of arrival: ambulatory Limitations: no limitations - History of Present Illness Initial comments: This is a 50-year-old female who presents to the emergency department complaining of a dog bite to the right middle finger on Thursday. Patient was placed on Augmentin but she had a reaction to the Augmentin so she was switched to doxycycline but the wound continues to worsen there is pus oozing from the wound since last night it is more red more tender and she is unable to flex the finger. Patient denies any fevers chills. Patient denies any other symptoms. - Related Data Home Medications Medication Instructions Recorded Confirmed buPROPion HCL [Wellbutrin SR] 150 mg PO BID 12/24/19 05/31/24 Esomeprazole Magnesium [NexIUM] 40 mg PO DAILY 07/17/20 05/31/24 Paragard Iud 1 device VAGINAL DAILY 07/17/20 05/31/24 Fexofenadine/Pseudoephedrine 1 each PO DAILY PRN 08/21/20 05/31/24 [Thao-D 24 Hour Tablet] Previous Rx's Medication Instructions Recorded Fluticasone Nasal [place] [Flonase 2 spr EA NOSTRIL DAILY #16 gm 09/12/22 Nasal [place]] Fluconazole [Diflucan] 150 mg PO DIRECTED #2 tab 04/17/23 Ibuprofen [Motrin] 800 mg PO Q6HR #60 tab 05/01/23 metroNIDAZOLE 500 mg PO BID 7 Days #14 tablet 06/02/24 Azithromycin [Zithromax Z Pack] 0 tab PO DIRECTED #6 tab 01/23/25 predniSONE 50 mg PO DAILY #5 tab 01/25/25 Allergies Allergy/AdvReac Type Severity Reaction Status Date / Time amoxicillin [From Augmentin] Allergy Wheezing Verified 04/27/25 12:45 cephalexin monohydrate Allergy Dyspnea Verified 05/31/24 10:50 [From Keflex] clavulanic acid Allergy Wheezing Verified 04/27/25 12:45 [From Augmentin] latex Allergy Dyspnea Verified 05/31/24 10:50 codeine AdvReac Hallucinati Verified 05/31/24 10:50 ons hydrocodone bitartrate AdvReac Rapid Verified 05/31/24 10:50 [From Vicodin] Heart Rate levofloxacin [From Levaquin] AdvReac Chest Pain Verified 04/27/25 14:11 metoclopramide HCl AdvReac Confusion Verified 05/31/24 10:50 [From Reglan] sulfamethoxazole AdvReac Abdominal Verified 05/31/24 10:50 [From Bactrim] Pain trimethoprim [From Bactrim] AdvReac Abdominal Verified 05/31/24 10:50 Pain Review of Systems ROS Statement: Those systems with pertinent positive or pertinent negative responses have been documented in the HPI. ROS Other: All systems not noted in ROS Statement are negative. Past Medical History Past Medical History: GERD/Reflux Additional Past Medical History / Comment(s): IBS. 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 She has no other history of STDs. ParaGard IUD was placed in 2012. History of Any Multi-Drug Resistant Organisms: None Reported Past Surgical History: Appendectomy, Cholecystectomy, Tonsillectomy Additional Past Surgical History / Comment(s): nose, tailbone. Colonoscopy in her early 30s. Past Psychological History: No Psychological Hx Reported Smoking Status: Never smoker Past Alcohol Use History: Occasional Past Drug Use History: None Reported - Past Family History Mother Family Medical History: Cancer Additional Family Medical History / Comment(s): Breast cancer. Maternal grandmother also had breast cancer. Father Family Medical History: Diabetes Mellitus General Exam - General Exam Comments Initial Comments: GENERAL: Patient is well-developed and well-nourished. Patient is nontoxic and well- hydrated and is in mild distress. ENT: Neck is soft and supple. No significant lymphadenopathy is noted. Oropharynx is clear. Moist mucous membranes. Neck has full range of motion without eliciting any pain. EYES: The sclera were anicteric and conjunctiva were pink and moist. Extraocular movements were intact and pupils were equal round and reactive to light. Eyelids were unremarkable. SKIN: Skin is clear with no lesions or rashes and otherwise unremarkable. NEUROLOGIC: Patient is alert and oriented x3. Cranial nerves II through XII are grossly intact. Motor and sensory are also intact. Normal speech, volume and content. Symmetrical smile. MUSCULOSKELETAL: Normal extremities with adequate strength and full range of motion. Patient's right middle finger is red from the PIP joint to the fingertip is swollen and there is large pustules on both sides 1 of which is draining. LYMPHATICS: No significant lymphadenopathy is noted PSYCHIATRIC: Normal psychiatric evaluation Limitations: no limitations Course Vital Signs 04/27/25 12:42 Temperature 98.3 F Pulse Rate 91 Respiratory 20 Rate Blood Pressure 145/94 O2 Sat by Pulse 99 Oximetry Medical Decision Making - Medical Decision Making Was pt. sent in by a medical professional or institution (, ANN, GLAUCOMA SPECIALIST, urgent care, hospital, or long-term...) When possible be specific @ -No Did you speak to anyone other than the patient for history (EMS, parent, family, police, friend...)? What history was obtained from this source @ -No Did you review nursing and triage notes (agree or disagree)? Why? @ -I reviewed and agree with nursing and triage notes Were old charts reviewed (outside hosp., previous admission, EMS record, old EKG, old radiological studies, urgent care reports/EKG's, long-term records)? Report findings @ -No old charts were reviewed Differential Diagnosis? @ -Cellulitis, flexor tenosynovitis, osteomyelitis, this is not an all-inclusive list EKG interpreted by me (3pts min.). @ -As above X-rays interpreted by me (1pt min.). @ -X-ray showed no fracture. There is some debris that is very small on the x- ray and the soft tissue CT interpreted by me (1pt min.). @ -None done U/S interpreted by me (1pt. min.). @ -None done What testing was considered but not performed or refused? (CT, X-rays, U/S, labs)? Why? @ -None What meds were considered but not given or refused? Why? @ -None Did you discuss the management of the patient with other professionals (professionals i.e. ANN Bone, GLAUCOMA SPECIALIST, lab, RT, psych nurse, social science manager, electronic warfare technical, t eacher, senior compliance officer, case monitor)? Give summary @ -I spoke with orthopedics Nidhi Galindo and they agreed to see the patient in consult and one of the possibly do an I&D in the morning. I spoke with Dr. Galvez and he agreed to meet the patient Was smoking cessation discussed for >3mins.? @ -No Was critical care preformed (if so, how long)? @ -No Were there social determinants of health that impacted care today? How? (Homelessness, low income, unemployed, alcoholism, drug addiction, transporta tion, low edu. Level, literacy, decrease access to med. care, [facility], rehab)? @ -No Was there de-escalation of care discussed even if they declined (Discuss DNR or withdrawal of care, Hospice)? DNR status @ -No What co-morbidities impacted this encounter? (DM, HTN, Smoking, COPD, CAD, Cancer, CVA, ARF, Chemo, Hep., AIDS, mental health diagnosis, sleep apnea, morbid obesity)? @ -None Was patient admitted / discharged? Hospital course, mention meds given and route, prescriptions, significant lab abnormalities, going to OR and other pertinent info. @ -Patient was started on antibiotics in the emergency department I started on clindamycin and vancomycin. Spoke with Nidhi williamson he agreed to see the patient. I spoke with Dr. Galvez he agreed to admit the patient. Patient also was given nausea meds as well as pain meds for the injured finger. Undiagnosed new problem with uncertain prognosis? @ -No Drug Therapy requiring intensive monitoring for toxicity (Heparin, Nitro, Insulin, Cardizem)? @ -No Were any procedures done? @ -No Diagnosis/symptom? @ -Flexor tenosynovitis Acute, or Chronic, or Acute on Chronic? @ -Acute Uncomplicated (without systemic symptoms) or Complicated (systemic symptoms)? @ -Complicated Side effects of treatment? @ -No Exacerbation, Progression, or Severe Exacerbation? @ -No Poses a threat to life or bodily function? How? (Chest pain, [place], [place], pneumonia, PE, COPD, DKA, ARF, appy, cholecystitis, CVA, Diverticulitis, Homicidal, Suicidal, threat to staff... and all critical care pts) @ -Yes this could lead to sepsis and endorgan dysfunction or possible loss of the digit - Lab Data Result diagrams: 04/27/25 13:32 04/27/25 13:32 Lab Results 04/27/25 04/27/25 04/27/25 Range/Units 13:32 13:32 13:32 WBC 6.11 (4.50-10.00) 10*3/uL RBC 4.26 (4.10-5.20) 10*6/uL Hgb 13.4 (12.0-15.0) g/dL Hct 38.7 (37.2-46.3) % MCV 90.8 (80.0-97.0) fL MCH 31.5 (27.0-32.0) pg MCHC 34.6 (32.0-37.0) g/dL Plt Count 300 (140-440) 10*3/uL MPV 9.9 (9.5-12.2) fL Immature Gran % (Auto) 0.3 % Neutrophils % 63.2 % Lymphocytes % 27.0 % Monocytes % 7.0 % Eosinophils % 2.0 % Basophils % 0.5 % Immature Gran # 0.02 (0.00-0.04) 10*3/uL Neutrophils # 3.86 (1.80-7.70) 10*3/uL Lymphocytes # 1.65 (0.90-5.00) 10*3/uL Monocytes # 0.43 (0.20-1.00) 10*3/uL Eosinophils # 0.12 (0.04-0.35) 10*3/uL Basophils # 0.03 (0.00-0.10) 10*3/uL Sodium 143 (137-145) mmol/L Potassium 3.9 (3.5-5.1) mmol/L Chloride 108 H (98-107) mmol/L Carbon Dioxide 24 (22-30) mmol/L Anion Gap 11 mmol/L BUN 20 H (7-17) mg/dL Creatinine 0.81 (0.52-1.04) mg/dL Est GFR (CKD-EPI)AfAm >90 (>60 ml/min/1.73 sqM) Est GFR (CKD-EPI)NonAf 85 (>60 ml/min/1.73 sqM) Glucose 113 H (74-99) mg/dL Plasma Lactic Acid Sheng 1.4 (0.7-2.0) mmol/L Calcium 9.3 (8.4-10.2) mg/dL Total Bilirubin 0.3 (0.2-1.3) mg/dL AST 20 (14-36) U/L ALT 19 (4-34) U/L Alkaline Phosphatase 111 (38-126) U/L C-Reactive Protein (<1.0) mg/dL Total Protein 6.7 (6.3-8.2) g/dL Albumin 4.1 (3.5-5.0) g/dL 04/27/25 Range/Units 15:49 WBC (4.50-10.00) 10*3/uL RBC (4.10-5.20) 10*6/uL Hgb (12.0-15.0) g/dL Hct (37.2-46.3) % MCV (80.0-97.0) fL MCH (27.0-32.0) pg MCHC (32.0-37.0) g/dL Plt Count (140-440) 10*3/uL MPV (9.5-12.2) fL Immature Gran % (Auto) % Neutrophils % % Lymphocytes % % Monocytes % % Eosinophils % % Basophils % % Immature Gran # (0.00-0.04) 10*3/uL Neutrophils # (1.80-7.70) 10*3/uL Lymphocytes # (0.90-5.00) 10*3/uL Monocytes # (0.20-1.00) 10*3/uL Eosinophils # (0.04-0.35) 10*3/uL Basophils # (0.00-0.10) 10*3/uL Sodium (137-145) mmol/L Potassium (3.5-5.1) mmol/L Chloride (98-107) mmol/L Carbon Dioxide (22-30) mmol/L Anion Gap mmol/L BUN (7-17) mg/dL Creatinine (0.52-1.04) mg/dL Est GFR (CKD-EPI)AfAm (>60 ml/min/1.73 sqM) Est GFR (CKD-EPI)NonAf (>60 ml/min/1.73 sqM) Glucose (74-99) mg/dL Plasma Lactic Acid Sheng (0.7-2.0) mmol/L Calcium (8.4-10.2) mg/dL Total Bilirubin (0.2-1.3) mg/dL AST (14-36) U/L ALT (4-34) U/L Alkaline Phosphatase (38-126) U/L C-Reactive Protein 2.4 H (<1.0) mg/dL Total Protein (6.3-8.2) g/dL Albumin (3.5-5.0) g/dL Critical Care Time Critical Care Time: Yes Total Critical Care Time: 35 Disposition Clinical Impression: Flexor tenosynovitis of finger Disposition: ADMITTED IP TO THIS HOSP Referrals: Dustin Galvez MD [Primary Care Provider] - 1-2 days Time of Disposition: 16:53
[2025-04-27 13:45] LABS: Basophils # (A) 0.03 10*3/uL (0.00-0.10); Basophils % (A) 0.5 %; Eosinophils # (A) 0.12 10*3/uL (0.04-0.35); Eosinophils % (A) 2.0 %; HCT 38.7 % (37.2-46.3); HGB 13.4 g/dL (12.0-15.0); Lymphocytes # (A) 1.65 10*3/uL (0.90-5.00); Lymphocytes % (A) 27.0 %; MCH 31.5 pg (27.0-32.0); MCHC 34.6 g/dL (32.0-37.0); MCV 90.8 fL (80.0-97.0); Monocytes # (A) 0.43 10*3/uL (0.20-1.00); Monocytes % (A) 7.0 %; Neutrophils # (A) 3.86 10*3/uL (1.80-7.70); Neutrophils % (A) 63.2 %; Platelet Count 300 10*3/uL (140-440); RBC 4.26 10*6/uL (4.10-5.20); RDW 12.7 % (11.5-14.5); WBC 6.11 10*3/uL (4.50-10.00)
[2025-04-27] MEDS: CLINDAMYCIN 600 MG/50 ML-D5W 600 MG in DEXTROSE/WATER 1 50ML.BAG IVPB STA (13:51)
[2025-04-27 14:10] LABS: ALT 19 U/L (4-34); AST 20 U/L (14-36); African American GFR (CKD) >90 (>60 ml/min/1.73 sqM); Albumin 4.1 g/dL (3.5-5.0); Alkaline Phosphatase 111 U/L (38-126); Anion Gap 11 mmol/L; Blood Urea Nitrogen 20 mg/dL (7-17); Calcium 9.3 mg/dL (8.4-10.2); Carbon Dioxide 24 mmol/L (22-30); Chloride 108 mmol/L (98-107); Glucose 113 mg/dL (74-99); Non-African American GFR(CKD) 85 (>60 ml/min/1.73 sqM); Potassium 3.9 mmol/L (3.5-5.1); Sodium 143 mmol/L (137-145); Total Protein 6.7 g/dL (6.3-8.2)
[2025-04-27] MEDS ORDERED: VANCOMYCIN IV PER PHARMACY 1 EACH MISC MISCELLANE PRN (14:13)
[2025-04-27] MEDS: LORazepam 1 MG/0.5 ML VIAL IV STA (14:24)
--- NOTE | 2025-04-27 14:52 | XR ---
EXAMINATION TYPE: XR finger RT DATE OF EXAM: 04/27/2025 1:49 PM COMPARISON: CLINICAL INDICATION: Female, 50 years old with history of Middle finger osteomyelitis; PHH, pain TECHNIQUE: 3 views coned down right middle finger FINDINGS: There is soft tissue swelling present mid to distal aspect of the third digit. 3 foci of very faint p unctate debris projecting at the radial sided soft tissues adjacent to the base of the distal phalanx . Additional punctate density on the oblique and lateral views likely dorsal ulnar aspect at the leve l of the middle phalangeal neck. No underlying acute fracture, subluxation, dislocation. No periostit is or osteolysis. IMPRESSION: 1. 3 foci of very faint punctate debris in the radial sided soft tissues adjacent to the base of the distal phalanx. 2. Additional punctate density on the oblique and lateral views within the dorsoulnar aspect at the l evel of the middle phalangeal neck. 3. No underlying acute osseous abnormality or radiographic findings of osteomyelitis at this time. [facility], , 04/27/2025 2:50 PM
[2025-04-27] MEDS: ONDANSETRON 4 MG/2 ML VIAL IVP STA (15:37)
[2025-04-27] MEDS: KETOROLAC 15 MG/ML 1 ML VIAL IVP STA (15:39)
[2025-04-27] MEDS: VANCOMYCIN 1,500 MG in SODIUM CHLORIDE 0.9% 500 ML 500 ML IVPB STA (15:41)
[2025-04-27] MEDS: HYDROmorphone 0.5 MG/0.5 ML SYRINGE IVP STA (15:42)
[2025-04-27] MEDS: HYDROmorphone 0.5 MG/0.5 ML SYRINGE IM STA (15:45)
[2025-04-27] MEDS ORDERED: SODIUM CHLORIDE 0.9% IVPB SCH (16:00)
[2025-04-27] MEDS ORDERED: GENTAMICIN IVPB SCH (16:00)
[2025-04-27] MEDS: LORazepam 1 MG/0.5 ML VIAL IV PRN (17:33)
--- NOTE | 2025-04-27 18:28 | P.CNOR ---
History of Present Illness - [facility] Consult date: 04/27/25 History of present illness: Patient presents for evaluation of right middle finger pain and swelling, patient states she attempted to break up a dog fight over this past weekend when one of the dogs bit her right middle finger. She was initially seen on Thursday and prescribed oral antibiotics however due to allergies she had some reactions to them and had to be switched. Over the past few days she has noted increased swelling and pain to the right middle finger but denies any fevers or chills, she denies any pain extending into the palm of her hand. She denies any significant pain with range of motion of the finger only has pain when the area of swelling is touched. Review of Systems Constitutional: Denies chills, Denies fever Musculoskeletal: Reports as per HPI Past Medical History Past Medical History: GERD/Reflux Additional Past Medical History / Comment(s): IBS. 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 She has no other history of STDs. ParaGard IUD was placed in 2012. History of Any Multi-Drug Resistant Organisms: None Reported Past Surgical History: Appendectomy, Cholecystectomy, Tonsillectomy Additional Past Surgical History / Comment(s): nose, tailbone. Colonoscopy in her early 30s. Past Psychological History: No Psychological Hx Reported Smoking Status: Never smoker Past Alcohol Use History: Occasional Past Drug Use History: None Reported - Past Family History Mother Family Medical History: Cancer Additional Family Medical History / Comment(s): Breast cancer. Maternal grandmother also had breast cancer. Father Family Medical History: Diabetes Mellitus Medications and Allergies Home Medications Medication Instructions Recorded Confirmed Type Doxycycline Hyclate 100 mg PO BID 04/27/25 04/27/25 History Fexofenadine HCl [Thao Allergy] 180 mg PO DAILY 04/27/25 04/27/25 History buPROPion XL [Wellbutrin XL] 300 mg PO DAILY 04/27/25 04/27/25 History Allergies Allergy/AdvReac Type Severity Reaction Status Date / Time amoxicillin [From Augmentin] Allergy Wheezing Verified 04/27/25 17:38 cephalexin monohydrate Allergy Dyspnea Verified 04/27/25 17:38 [From Keflex] clavulanic acid Allergy Wheezing Verified 04/27/25 17:38 [From Augmentin] latex Allergy Dyspnea Verified 04/27/25 17:38 codeine AdvReac Hallucinati Verified 04/27/25 17:38 ons hydrocodone bitartrate AdvReac Rapid Verified 04/27/25 17:38 [From Vicodin] Heart Rate levofloxacin [From Levaquin] AdvReac Chest Pain Verified 04/27/25 17:38 metoclopramide HCl AdvReac Confusion Verified 04/27/25 17:38 [From Reglan] sulfamethoxazole AdvReac Abdominal Verified 04/27/25 17:38 [From Bactrim] Pain trimethoprim [From Bactrim] AdvReac Abdominal Verified 04/27/25 17:38 Pain Physical Examination On exam of the right middle finger there are partially healed puncture wounds 1 on the volar aspect of the middle finger and the DIP joint crease the other on the dorsal aspect of the digit and approximately the same location near the DIP joint, there is a fluctuant fluid collection immediately adjacent to this area with visible purulent collection just beneath the skin surface. Patient is able to actively flex and extend the DIP joint as well as the PIP joint she has swelling and erythema extending from the area around the PIP joint to the middle phalanx but no extension proximal to this. She has no pain along the more proximal aspect of the flexor tendon sheath and has no pain into the palm of her hand. She has intact light touch sensation throughout the digit and brisk capillary refill throughout the digit. Results - Labs Labs: Abnormal Lab Results - Last 24 Hours (Table) 04/27/25 04/27/25 Range/Units 13:32 15:49 Chloride 108 H (98-107) mmol/L BUN 20 H (7-17) mg/dL Glucose 113 H (74-99) mg/dL C-Reactive Protein 2.4 H (<1.0) mg/dL H & H 04/27/25 Range/Units 13:32 Hgb 13.4 (12.0-15.0) g/dL Hct 38.7 (37.2-46.3) % Result Diagrams: 04/27/25 13:32 04/27/25 13:32 - Diagnostic results Wrist/Hand x-ray: image reviewed (No overt foreign bodies identified, there is some comment for some mild densities noted along the radial aspect of the digit there is also swelling around the DIP joint and middle phalanx soft tissues) Assessment and Plan Assessment: Right middle finger abscess Plan: Overall patient's exam is concerning for a localized abscess to the right middle finger in the areas where she had her bite wounds, at this time there is no concern for associated flexor tenosynovitis or concern for intra-articular joint involvement Had a discussion with the patient regarding possible treatment options, due to her desire to not undergo any form of anesthesia she is amenable to a bedside irrigation and debridement of the finger as well as admission for administration of IV antibiotics. Procedure: Right middle finger irrigation and debridement of superficial abscess at the level of the DIP joint and middle phalanx After sterile preparation the right middle finger was administered a digital block with 1% lidocaine without epinephrine A 15 blade scalpel was then used to open her volar wound and upon doing so there was immediate significant purulent drainage wound culture was obtained, the wound area was then opened with a hemostat next the dorsal puncture site was opened with a 15 blade, only a small amount of purulent discharge was present at this location, manual manipulation of the finger was used to express further purulent drainage. The wounds were then copiously irrigated with 1 L of normal saline and the wounds were left open in order to promote further drainage and prevent reaccumulation of an abscess. Patient will be admitted for IV antibiotic administration For now she has started on broad-spectrum antibiotics however we will tailor these with the help of the infectious disease team pending her culture results Appreciate infectious disease input as patient has several antibiotic allergies limiting antibiotic options For now we will keep patient n.p.o. at midnight in case her clinical exam was to worsen and necessitate possible formal treatment in the operating room Multimodal pain regimen Strict elevation of the hand as often as possible in order to decrease pain and swelling Follow-up wound cultures Recommend nonweightbearing to the right hand to promote soft tissue rest as well as no strenuous lifting with the right hand
[2025-04-27] MEDS: AZTREONAM 2 GM in SODIUM CHLORIDE 0.9% 100 ML IVPB ONE (18:57)
[2025-04-27] MEDS: SODIUM CHLORIDE 0.9% 1,000 ML IV ONE (18:57)
[2025-04-27] MEDS: HYDROmorphone 0.5 MG/0.5 ML SYRINGE IVP PRN (18:58)
[2025-04-27] MEDS ORDERED: CLINDAMYCIN 600 MG/50 ML-D5W 600 MG in DEXTROSE/WATER 1 50ML.BAG IVPB SCH (20:00)
[2025-04-27] MEDS: ACETAMINOPHEN TAB 500 MG TAB PO STA (20:20)
[2025-04-27] MEDS: IBUPROFEN 800 MG TAB PO SCH (21:52)
[2025-04-27] MEDS: CLINDAMYCIN 600 MG/50 ML-D5W 600 MG in DEXTROSE/WATER 1 50ML.BAG IVPB SCH (21:53)
[2025-04-28] MEDS: VANCOMYCIN 1,500 MG in SODIUM CHLORIDE 0.9% 500 ML 500 ML IVPB SCH (03:43)
[2025-04-28] MEDS: AZTREONAM 2 GM in SODIUM CHLORIDE 0.9% 100 ML IVPB SCH (05:12)
[2025-04-28 05:51] LABS: African American GFR (CKD) 86 (>60 ml/min/1.73 sqM); Non-African American GFR(CKD) 75 (>60 ml/min/1.73 sqM)
--- NOTE | 2025-04-28 07:34 | P.PN ---
Progress Note - Text Progress Note Date: 04/28/25 Patient seen and examined this morning, overall doing well states her pain improved overnight after her bedside drainage procedure. Denies any fevers or chills, denies any new pain throughout her middle finger or extending into her hand. On exam her dressings were removed overall her swelling is mildly improved, there is no evidence of reaccumulation of any abscess or other pockets of fluid, there is no active purulent drainage from her I&D sites, she has intact motion of the PIP and DIP joints, she does have some focal tenderness at the site of her incision however there is no pain more proximally along the flexor tendon sheath and no palpation or signs of infection going into the palm of the hand. She is neurovascularly intact throughout the middle finger and hand At this time I have low concern for any flexor tenosynovitis, I suspect this was related to a solitary abscess that is now status post bedside irrigation and debridement. Patient will not require OR treatment today Will begin 3 times daily dilute Betadine soaks, first 1 is currently underway Encourage strict elevation of the hand to decrease pain and swelling Continue to follow wound cultures taken yesterday to help guide antibiotic treatment Continue broad-spectrum antibiotics for now until cultures result Appreciate infectious disease input for antibiotic management as patient has several allergies Will continue to monitor clinical improvement for ultimate determination of discharge planning
--- NOTE | 2025-04-28 08:44 | P.HPIM ---
History of Present Illness H&P Date: 04/28/25 Chief Complaint: Dog bite on the finger. The patient is here is a 50-year-old white female with known history of depression which is stable but not about 5 to 6 days ago struggled after being bit by the family dog. The wound did not heal appropriately hence she is now admitted. She tried to use appropriate local control with antibiotic treatment but it did not work. Debridement was done and flexor tendon tenosynovitis is noted. No previous injury like this ever. Review of Systems Constitutional: Denies chills, Denies fever Eyes: denies blurred vision, denies pain Ears, nose, mouth and throat: Denies headache, Denies sore throat Cardiovascular: Denies chest pain, Denies shortness of breath Respiratory: Denies cough Gastrointestinal: Denies abdominal pain, Denies diarrhea, Denies nausea, Denies vomiting Integumentary: Reports as per HPI, Reports wounds Past Medical History Past Medical History: GERD/Reflux Additional Past Medical History / Comment(s): IBS. 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 She has no other history of STDs. ParaGard IUD was placed in 2012. History of Any Multi-Drug Resistant Organisms: None Reported Past Surgical History: Appendectomy, Cholecystectomy, Tonsillectomy Additional Past Surgical History / Comment(s): nose, tailbone. Colonoscopy in her early 30s. Past Anesthesia/Blood Transfusion Reactions: Postoperative Nausea & Vomiting (PONV) Past Psychological History: No Psychological Hx Reported Smoking Status: Never smoker Past Alcohol Use History: Occasional Past Drug Use History: None Reported - Past Family History Mother Family Medical History: Cancer Additional Family Medical History / Comment(s): Breast cancer. Maternal grandmother also had breast cancer. Father Family Medical History: Diabetes Mellitus Medications and Allergies Home Medications Medication Instructions Recorded Confirmed Type Doxycycline Hyclate 100 mg PO BID 04/27/25 04/27/25 History Fexofenadine HCl [Thao Allergy] 180 mg PO DAILY 04/27/25 04/27/25 History buPROPion XL [Wellbutrin XL] 300 mg PO DAILY 04/27/25 04/27/25 History Allergies Allergy/AdvReac Type Severity Reaction Status Date / Time amoxicillin [From Augmentin] Allergy Wheezing Verified 04/27/25 17:38 cephalexin monohydrate Allergy Dyspnea Verified 04/27/25 17:38 [From Keflex] clavulanic acid Allergy Wheezing Verified 04/27/25 17:38 [From Augmentin] latex Allergy Dyspnea Verified 04/27/25 17:38 codeine AdvReac Hallucinati Verified 04/27/25 17:38 ons hydrocodone bitartrate AdvReac Rapid Verified 04/27/25 17:38 [From Vicodin] Heart Rate levofloxacin [From Levaquin] AdvReac Chest Pain Verified 04/27/25 17:38 metoclopramide HCl AdvReac Confusion Verified 04/27/25 17:38 [From Reglan] sulfamethoxazole AdvReac Abdominal Verified 04/27/25 17:38 [From Bactrim] Pain trimethoprim [From Bactrim] AdvReac Abdominal Verified 04/27/25 17:38 Pain Physical Exam Vitals: Vital Signs Temp Pulse Pulse Resp BP BP Pulse Ox 04/28/25 07:08 98.4 F 80 18 114/72 98 04/28/25 02:05 98.7 F 82 16 103/67 97 04/27/25 19:39 98.8 F 89 16 115/76 97 04/27/25 18:10 98.6 F 77 20 121/76 100 04/27/25 17:53 98.4 F 77 20 121/76 100 04/27/25 12:42 98.3 F 91 20 145/94 99 Intake and Output 04/27/25 04/28/25 04/28/25 22:59 06:59 14:59 Other: Voiding Method Toilet # Voids 1 Weight 80.739 kg - Constitutional General appearance: average body habitus - EENT Eyes: EOMI - Neck Neck: no lymphadenopathy - Respiratory Respiratory: bilateral: CTA - Cardiovascular Rhythm: regular Heart sounds: normal: S1, S2 Abnormal Heart Sounds: no S3 Gallop - Gastrointestinal General gastrointestinal: soft, no tenderness - Integumentary Integumentary: cellulitis Results CBC & Chem 7: 04/27/25 13:32 04/28/25 05:08 Labs: Abnormal Lab Results - Last 24 Hours (Table) 04/27/25 04/27/25 04/27/25 Range/Units 13:32 15:49 15:49 ESR 33 H (0-30) mm/Hr Chloride 108 H (98-107) mmol/L BUN 20 H (7-17) mg/dL Glucose 113 H (74-99) mg/dL C-Reactive Protein 2.4 H (<1.0) mg/dL Thrombosis Risk Factor Assmnt - Choose All That Apply Each Factor Represents 1 point: Age 41-60 years, Obesity (BMI >25) Thrombosis Risk Factor Assessment Total Risk Factor Score: 2 Thrombosis Risk Factor Assessment Level: Low Risk Assessment and Plan (1) Reflux esophagitis Current Visit: Yes Status: Acute Code(s): K21.00 - GASTRO-ESOPHAGEAL REFLUX DIS WITH ESOPHAGITIS, WITHOUT BLEED SNOMED Code(s): 643991835 (2) Depression Current Visit: Yes Status: Acute Code(s): F32.A - DEPRESSION, UNSPECIFIED SNOMED Code(s): 47972930 (3) Flexor tenosynovitis of finger Current Visit: Yes Status: Acute Code(s): M65.949 - UNSPECIFIED SYNOVITIS AND TENOSYNOVITIS, UNSPECIFIED HAND SNOMED Code(s): 800565598 Plan: Continue empiric antibiotic treatment. Appreciate multiple consultants. Reconcile home medications. See orders otherwise.
[2025-04-28] MEDS: buPROPion XL 300 MG TAB.ER.24H PO SCH (09:08)
[2025-04-28] MEDS: LORATADINE 10 MG TAB PO SCH (09:11)
[2025-04-28] MEDS: traMADol 50 MG TAB PO PRN (13:14)
[2025-04-28 15:20] VITALS: BMI 32.5
[2025-04-28] MEDS: metroNIDAZOLE 500 MG TAB PO SCH (16:28)
[2025-04-29 05:52] LABS: African American GFR (CKD) >90 (>60 ml/min/1.73 sqM); Anion Gap 9 mmol/L; Blood Urea Nitrogen 18 mg/dL (7-17); Calcium 9.1 mg/dL (8.4-10.2); Carbon Dioxide 24 mmol/L (22-30); Chloride 106 mmol/L (98-107); Glucose 94 mg/dL (74-99); Non-African American GFR(CKD) >90 (>60 ml/min/1.73 sqM); Potassium 4.6 mmol/L (3.5-5.1); Sodium 139 mmol/L (137-145)
--- NOTE | 2025-04-29 10:52 | P.PN ---
Progress Note - Text Progress Note Date: 04/29/25 Patient was seen and examined this morning, she denies any acute issues overnight. Still has some throbbing type pain to her middle finger but has noticed improvement in her redness and swelling since her I&D. Denies any fevers or chills. Has been performing her dilute Betadine soaks 3 times a day as requested. On exam she has improvement in her swelling and erythema to the midportion of the digit, her drainage sites continue to remain open with a small amount of residual drainage however no reaccumulation of any fluid pockets noted. She continues to have active DIP and PIP motion limited due to her swelling but no pain along the flexor tendon sheath or evidence of infection extending into her hand. She continues to have some mild diminished light touch sensation to the tip of the finger most likely due to the swelling in that area of the digit. Preliminary wound cultures have resulted showing gram-positive cocci Plan: Continue broad-spectrum antibiotics until wound cultures identify causative bacteria Appreciate infectious disease input for antibiotic updates once cultures result as well as planning for future oral regimens due to her multiple antibiotic allergies Continue 3 times daily dilute Betadine soaks Encourage strict elevation of the hand to the level of her heart to further decrease swelling of the digit as well as ice packs Updated CBC and CRP ordered Will continue to monitor clinical exam however have low suspicion that any further surgical intervention will be required Anticipate discharge on oral antibiotics in the coming days once wound cultures identify causative bacteria
--- NOTE | 2025-04-29 10:58 | P.CONS ---
History of Present Illness - Reason for Consult Consult date: 04/28/25 Flexor tenosynovitis Requesting physician: Ziggy Mina - Chief Complaint Right middle finger pain swelling redness x days - History of Present Illness Patient is a 50-year-old female with a past medical history significant for reflux recently did have a dog bite to the right middle finger when she was trying to break up a fight between 2 dogs patient was seen in the ER and was placed on Augmentin however the patient mention he did have some type of reaction for the patient was seen back in the and was started on doxycycline now presenting back to the ER concerning for worsening wound to the right middle finger describing it to be painful patient is currently pain to be sharp moderate intensity without radiation with associated swelling redness and it has not purulent drainage on presentation to the ER the patient was afebrile and no fever have recorded subsequently patient was not tachycardic hypotensive or hypoxic she did have a white count of 6.11 creatinine 0.81 electrolytes within normal no exams are normal patient has been evaluated by orthopedics and did have bedside I&D culture have been obtained the patient was started on vancomycin Azactam clindamycin infectious was consulted for further management of antibiotic therapy 1 Review of Systems Positive point and negatives has been mentioned in the HPI, complete review of systems was performed and all other systems are negative Past Medical History Past Medical History: GERD/Reflux Additional Past Medical History / Comment(s): IBS. 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 She has no other history of STDs. ParaGard IUD was placed in 2012. History of Any Multi-Drug Resistant Organisms: None Reported Past Surgical History: Appendectomy, Cholecystectomy, Tonsillectomy Additional Past Surgical History / Comment(s): nose, tailbone. Colonoscopy in her early 30s. Past Anesthesia/Blood Transfusion Reactions: Postoperative Nausea & Vomiting (PONV) Past Psychological History: No Psychological Hx Reported Smoking Status: Never smoker Past Alcohol Use History: Occasional Past Drug Use History: None Reported - Past Family History Mother Family Medical History: Cancer Additional Family Medical History / Comment(s): Breast cancer. Maternal grandmother also had breast cancer. Father Family Medical History: Diabetes Mellitus Medications and Allergies Home Medications Medication Instructions Recorded Confirmed Type Doxycycline Hyclate 100 mg PO BID 04/27/25 04/27/25 History Fexofenadine HCl [Thao Allergy] 180 mg PO DAILY 04/27/25 04/27/25 History buPROPion XL [Wellbutrin XL] 300 mg PO DAILY 04/27/25 04/27/25 History Allergies Allergy/AdvReac Type Severity Reaction Status Date / Time amoxicillin [From Augmentin] Allergy Wheezing Verified 04/27/25 17:38 cephalexin monohydrate Allergy Dyspnea Verified 04/27/25 17:38 [From Keflex] clavulanic acid Allergy Wheezing Verified 04/27/25 17:38 [From Augmentin] latex Allergy Dyspnea Verified 04/27/25 17:38 codeine AdvReac Hallucinati Verified 04/27/25 17:38 ons hydrocodone bitartrate AdvReac Rapid Verified 04/27/25 17:38 [From Vicodin] Heart Rate levofloxacin [From Levaquin] AdvReac Chest Pain Verified 04/27/25 17:38 metoclopramide HCl AdvReac Confusion Verified 04/27/25 17:38 [From Reglan] sulfamethoxazole AdvReac Abdominal Verified 04/27/25 17:38 [From Bactrim] Pain trimethoprim [From Bactrim] AdvReac Abdominal Verified 04/27/25 17:38 Pain Physical Exam Vitals: Vital Signs Temp Pulse Pulse Resp BP BP Pulse Ox 04/28/25 07:08 98.4 F 80 18 114/72 98 04/28/25 02:05 98.7 F 82 16 103/67 97 04/27/25 19:39 98.8 F 89 16 115/76 97 04/27/25 18:10 98.6 F 77 20 121/76 100 04/27/25 17:53 98.4 F 77 20 121/76 100 04/27/25 12:42 98.3 F 91 20 145/94 99 Intake and Output 04/27/25 04/28/25 04/28/25 22:59 06:59 14:59 Other: Voiding Method Toilet # Voids 1 Weight 80.739 kg GENERAL DESCRIPTION: Middle-age female lying in bed, no distress. No tachypnea or accessory muscle of respiration use. HEENT: Shows Pallor , no scleral icterus. Oral mucous membrane is dry. NECK: Trachea central, no thyromegaly. LUNGS: Unlabored breathing. Clear to auscultation anteriorly. No wheeze or crackle. HEART: S1, S2, regular rate and rhythm. No loud murmur ABDOMEN: Soft, no tenderness , guarding or rigidity, no organomegaly EXTREMITIES: Right middle finger is currently dressed with minimal drainage reviewed the patient did show significant swelling and redness and open wound post drainage SKIN: No rash, no masses palpable. NEUROLOGICAL: The patient is awake, alert, oriented x3, mood and affect normal. Results CBC & Chem 7: 04/29/25 04:55 04/29/25 04:55 Labs: Abnormal Lab Results - Last 24 Hours (Table) 04/27/25 04/27/25 04/27/25 Range/Units 13:32 15:49 15:49 ESR 33 H (0-30) mm/Hr Chloride 108 H (98-107) mmol/L BUN 20 H (7-17) mg/dL Glucose 113 H (74-99) mg/dL C-Reactive Protein 2.4 H (<1.0) mg/dL Assessment and Plan (1) Allergy to multiple antibiotics Current Visit: Yes Status: Acute Code(s): Z88.1 - ALLERGY STATUS TO OTHER ANTIBIOTIC AGENTS SNOMED Code(s): 081232102 (2) Flexor tenosynovitis of finger Current Visit: Yes Status: Acute Code(s): M65.949 - UNSPECIFIED SYNOVITIS AND TENOSYNOVITIS, UNSPECIFIED HAND SNOMED Code(s): 843028727 (3) Dog bite Current Visit: Yes Status: Acute Code(s): W54.0XXA - BITTEN BY DOG, INITIAL ENCOUNTER SNOMED Code(s): 426581585 Plan: 1patient is in the hospital with extensive infection to the right middle finger in this patient did have a history of dog bite causing this injury subsequently seem to have a problem with oral Augmentin that was switched to doxycycline now with worsening infection will need to cover for the polymicrobial florentino of the dog mouth causing this abscess and cellulitis and concern for tenosynovitis 2-patient with multiple antibiotic ALLERGIES that would limit the number of antibiotic safe to use 3-patient empirically treated with vancomycin aztreonam however discontinue clindamycin and add Flagyl while waiting for the culture to finalize 4-May need IV antibiotics on discharge because of her multiple allergies with a discharge antibiotic on the basis of final culture We will follow on clinical condition and cultures to further adjust medication if needed Thank you for this consultation we will follow the patient along with you Dictation was produced using [employer] dictation software. please excuse any grammatical, word or spelling errors. Time with Patient: Greater than 30
[2025-04-29 10:59] LABS: Basophils # (A) 0.02 10*3/uL (0.00-0.10); Basophils % (A) 0.4 %; Eosinophils # (A) 0.17 10*3/uL (0.04-0.35); Eosinophils % (A) 3.7 %; HCT 38.1 % (37.2-46.3); HGB 12.6 g/dL (12.0-15.0); Lymphocytes # (A) 1.81 10*3/uL (0.90-5.00); Lymphocytes % (A) 39.1 %; MCH 30.7 pg (27.0-32.0); MCHC 33.1 g/dL (32.0-37.0); MCV 92.9 fL (80.0-97.0); Monocytes # (A) 0.41 10*3/uL (0.20-1.00); Monocytes % (A) 8.9 %; Neutrophils # (A) 2.19 10*3/uL (1.80-7.70); Neutrophils % (A) 47.3 %; Platelet Count 306 10*3/uL (140-440); RBC 4.10 10*6/uL (4.10-5.20); RDW 12.9 % (11.5-14.5); WBC 4.63 10*3/uL (4.50-10.00)
[2025-04-29] MEDS ORDERED: HYDROcodone/APAP 5-325MG 1 EACH TAB PO PRN (14:55)
[2025-04-29] MEDS ORDERED: HYDROmorphone 0.5 MG/0.5 ML SYRINGE IVP PRN (14:56)
[2025-04-29] MEDS: KETOROLAC 15 MG/ML 1 ML VIAL IVP SCH (15:41)
--- NOTE | 2025-04-29 16:08 | P.PN ---
Subjective Progress Note Date: 04/29/25 Principal diagnosis: Reason for follow-up is right middle finger dog bite/tenosynovitis Patient is a 50-year-old female with a past medical history significant for reflux recently did have a dog bite to the right middle finger with subsequent involvement of abscess and cellulitis failing outpatient oral Augmentin and doxycycline therapy status post debridement by orthopedics. On today's evaluation that is 04/29/2025, patient did have a temperature of 98 F this morning and denies having any chills, patient is on room air and breathing comfortably no chest pain or cough, the patient did not have any nausea vomiting abdominal pain or any diarrhea pain to the right middle finger slightly decreased in intensity. Patient white count is 4.63, creatinine 0.70 cultures currently pending Objective - Vital Signs Vital signs: Vital Signs Temp 98.2 F 04/29/25 13:24 Pulse 71 04/29/25 13:24 Resp 16 04/29/25 13:24 BP 115/77 04/29/25 13:24 Pulse Ox 98 04/29/25 13:24 FiO2 Intake & Output 04/28/25 04/29/25 04/29/25 18:59 06:59 18:59 Intake Total 780 Balance 780 Weight 80.739 kg Intake: Oral 780 Other: Voiding Method Toilet # Voids 3 4 - Exam GENERAL DESCRIPTION: Middle-age female male lying in bed in no distress RESPIRATORY SYSTEM: Unlabored breathing delete that HEART: S1 S2 regular rate and rhythm , ABDOMEN: Soft , no tenderness EXTREMITIES: Right middle finger is currently dressed reviewed the pictures, overall swelling redness has decreased - Labs CBC & Chem 7: 04/29/25 04:55 04/29/25 04:55 Labs: Abnormal Lab Results - Last 24 Hours (Table) 04/29/25 04/29/25 Range/Units 04:55 04:55 BUN 18 H (7-17) mg/dL C-Reactive Protein 1.6 H (<1.0) mg/dL Microbiology - Last 24 Hours (Table) 04/27/25 17:26 Gram Stain - Preliminary Hand - Right Wound Culture - Preliminary 04/27/25 13:32 Blood Culture - Preliminary Blood Assessment and Plan (1) Allergy to multiple antibiotics Current Visit: Yes Status: Acute Code(s): Z88.1 - ALLERGY STATUS TO OTHER ANTIBIOTIC AGENTS SNOMED Code(s): 813583637 (2) Flexor tenosynovitis of finger Current Visit: Yes Status: Acute Code(s): M65.949 - UNSPECIFIED SYNOVITIS AND TENOSYNOVITIS, UNSPECIFIED HAND SNOMED Code(s): 771107079 (3) Dog bite Current Visit: Yes Status: Acute Code(s): W54.0XXA - BITTEN BY DOG, INITIAL ENCOUNTER SNOMED Code(s): 726950719 Plan: 1patient is in the hospital with extensive infection to the right middle finger in this patient did have a history of dog bite causing this injury subsequently seem to have a problem with oral Augmentin that was switched to doxycycline now with worsening infection will need to cover for the polymicrobial florentino of the dog mouth causing this abscess and cellulitis and concern for tenosynovitis 2-patient with multiple antibiotic ALLERGIES that would limit the number of antibiotic safe to use 3-patient currently being treated treated with vancomycin aztreonam and Flagyl with the discharge antibiotic on the basis of final culture more likely IV this was discussed with the patient Dictation was produced using [employer] dictation software. please excuse any grammatical, word or spelling errors. Time with Patient: Less than 30
[2025-04-29] MEDS: VANCOMYCIN TROUGH DUE 1 EACH MISC MISCELLANE ONE (16:31)
[2025-04-29] MEDS: IBUPROFEN 800 MG TAB PO PRN (21:44)
--- NOTE | 2025-04-30 02:29 | PN ---
PROGRESS NOTE DATE OF SERVICE: 04/29/2025 I am covering for Dr. Galvez. SUBJECTIVE: This is a 50-year-old woman, was admitted with right middle finger flexor tenosynovitis after dog bite, she is on antibiotics. No chest pain. No palpitations. No fever. OBJECTIVE: VITAL SIGNS: Pulse is 71, blood pressure 115/70, respirations 16. CHEST: Clear to auscultation. CARDIOVASCULAR: S1, S2. ABDOMEN soft. LABORATORY DATA: Reviewed. CRP is 1.3. ASSESSMENT: 1. Flexor tenosynovitis of finger with cellulitis after a dog bite. 2. Allergy to multiple antibiotics. 3. Gastroesophageal reflux disease. 4. History of cholecystectomy. RECOMMENDATIONS AND DISCUSSION: This 50-year-old woman presented with multiple complex medical issues. We will monitor the patient closely. The patient is on aztreonam. Continue with antibiotics. Closely follow with Surgery, Infectious Disease, pain management. Further recommendations to follow. MMODL / IJN: [id number] /
[2025-04-30 09:43] LABS: Basophils # (A) 0.03 X 10*3/uL (0.00-0.10); Basophils % (A) 0.6 %; Eosinophils # (A) 0.19 X 10*3/uL (0.04-0.35); Eosinophils % (A) 3.5 %; HCT 39.2 % (37.2-46.3); HGB 12.7 g/dL (12.0-15.0); Immature Grans, Automated 0.40 %; Lymphocytes # (A) 1.77 X 10*3/uL (0.90-5.00); Lymphocytes % (A) 33.0 %; MCH 30.0 pg (27.0-32.0); MCHC 32.4 g/dL (32.0-37.0); MCV 92.7 FL (80.0-97.0); Monocytes # (A) 0.49 X 10*3/uL (0.20-1.00); Monocytes % (A) 9.1 %; NRBC Per 100 WBC 0 X 10*3/uL (0.00-0.01); Neutrophils # (A) 2.86 X 10*3/uL (1.80-7.70); Neutrophils % (A) 53.4 %; Platelet Count 302 X 10*3/uL (140-440); RBC 4.23 X 10*6/uL (4.10-5.20); RDW 12.7 % (11.5-14.5); WBC 5.36 X 10*3/uL (4.50-10.00)
[2025-04-30 10:00] LABS: Anion Gap 12.50 mmol/L (4.00-12.00); BUN/Creat Ratio 22.25 Ratio (12.00-20.00); Blood Urea Nitrogen 17.8 mg/dL (9.0-27.0); Calcium 8.9 mg/dL (8.7-10.3); Carbon Dioxide 24.5 mmol/L (21.6-31.8); Chloride 102 mmol/L (96-109); Glucose 96 mg/dL (70-110); Potassium 4.3 mmol/L (3.5-5.5); Sodium 139 mmol/L (135-145)
--- NOTE | 2025-04-30 13:25 | P.PN ---
Progress Note - Text Progress Note Date: 04/30/25 Patient having decreased pain and swelling to the right middle finger today, continues to deny any fevers or chills. Is able to perform greater range of motion of the middle finger. On exam of the right middle finger she has improved swelling and tenderness, there is no expressible drainage from her previous I&D sites, she continues to have no tenderness along the flexor tendon sheath, she has some mild diminished sensation to the fingertip due to residual swelling, she has intact active f lexion and extension at both the PIP and DIP joints as well as brisk capillary refill to the digit. Labs from yesterday continue to show a normal WBC count, her CRP has also decreased appropriately Assessment: right middle finger superficial abscess sp bedside I&D Plan: Continue to await culture finalization to guide outpatient antibiotic regimen Continue 3 times daily dilute Betadine soaks Encourage strict elevation of the right hand to further help with swelling Ice to the right middle finger as well to further decrease swelling Encourage range of motion of the digits to tolerance to further help with swelling Appreciate infectious disease input for outpatient antibiotic regimen due to patient's multiple drug allergies Low concern that there will be any need for further surgical intervention Anticipate discharge once cultures finalize and outpatient antibiotic regimen can be determined
--- NOTE | 2025-04-30 15:45 | P.PN ---
Subjective Progress Note Date: 04/30/25 Principal diagnosis: Reason for follow-up is right middle finger dog bite/tenosynovitis Patient is a 50-year-old female with a past medical history significant for reflux recently did have a dog bite to the right middle finger with subsequent involvement of abscess and cellulitis failing outpatient oral Augmentin and doxycycline therapy status post debridement by orthopedics. On today's evaluation that is 04/30/2025, Patient is afebrile patient is currently on room air and denies having any shortness of breath, the patient denies any chest pain or cough, the patient denies any nausea vomiting did not have any abdominal pain and no diarrhea pain to the right middle finger has decreased in intensity. Patient white count is 5.36, creatinine 0.8 local culture with group B strep and porphyromonas. Objective - Vital Signs Vital signs: Vital Signs Temp 98.0 F 04/30/25 07:40 Pulse 67 04/30/25 07:40 Resp 16 04/30/25 07:40 BP 111/75 04/30/25 07:40 Pulse Ox 97 04/30/25 07:40 FiO2 Intake & Output 04/29/25 04/30/25 04/30/25 18:59 06:59 18:59 Other: Voiding Method Toilet Toilet Toilet # Voids 3 1 - Exam GENERAL DESCRIPTION: Middle-age female male lying in bed in no distress RESPIRATORY SYSTEM: Unlabored breathing delete that HEART: S1 S2 regular rate and rhythm , ABDOMEN: Soft , no tenderness EXTREMITIES: Right middle finger swelling redness decreased no drainage - Labs CBC & Chem 7: 04/30/25 02:31 04/30/25 02:31 Labs: Abnormal Lab Results - Last 24 Hours (Table) 04/30/25 Range/Units 02:31 Anion Gap 12.50 H (4.00-12.00) mmol/L BUN/Creatinine Ratio 22.25 H (12.00-20.00) Ratio Microbiology - Last 24 Hours (Table) 04/27/25 17:26 Gram Stain - Final Hand - Right Wound Culture - Final Beta Hemolytic Strep Group G 04/27/25 13:32 Blood Culture - Preliminary Blood Assessment and Plan (1) Allergy to multiple antibiotics Current Visit: Yes Status: Acute Code(s): Z88.1 - ALLERGY STATUS TO OTHER ANTIBIOTIC AGENTS SNOMED Code(s): 023357373 (2) Flexor tenosynovitis of finger Current Visit: Yes Status: Acute Code(s): M65.949 - UNSPECIFIED SYNOVITIS AND TENOSYNOVITIS, UNSPECIFIED HAND SNOMED Code(s): 545908420 (3) Dog bite Current Visit: Yes Status: Acute Code(s): W54.0XXA - BITTEN BY DOG, INITIAL ENCOUNTER SNOMED Code(s): 063683952 Plan: 1patient is in the hospital with extensive infection to the right middle finger in this patient did have a history of dog bite causing this injury subsequently seem to have a problem with oral Augmentin that was switched to doxycycline now with worsening infection will need to cover for the polymicrobial florentino of the dog mouth causing this abscess and cellulitis and concern for tenosynovitis 2-patient with multiple antibiotic ALLERGIES that would limit the number of antibiotic safe to use 3-patient local culture growing group B strep and anaerobe patient to continue with the vancomycin and Flagyl will discontinue Azactam she will need a midline and short course of IV antibiotic on discharge Dictation was produced using [employer] dictation software. please excuse any grammatical, word or spelling errors. Time with Patient: Less than 30
[2025-05-01 02:45] VITALS: RESP 16
[2025-05-01 03:34] LABS: African American GFR (CKD) >90 (>60 ml/min/1.73 sqM); Non-African American GFR(CKD) >90 (>60 ml/min/1.73 sqM)
--- NOTE | 2025-05-01 04:29 | PN ---
PROGRESS NOTE DATE OF SERVICE: 04/30/2025 I am covering for Dr. Galvez. SUBJECTIVE: This is a 50-year-old woman, was admitted with flexor tenosynovitis after dog bite, is on IV antibiotics. The patient had failure of outpatient treatment and has allergies to multiple antibiotics also. OBJECTIVE: VITAL SIGNS: Pulse is 85, blood pressure 118/70, respirations 16. CHEST: Clear to auscultation. CARDIOVASCULAR: S1, S2. ABDOMEN: Soft. EXTREMITIES: The right middle finger wound present. LABORATORY DATA: CBC within normal limits. ASSESSMENT: 1. Flexor tenosynovitis of the finger with cellulitis after a dog bite. 2. Allergy to multiple antibiotics. 3. Gastroesophageal reflux disease. 4. History of cholecystectomy. RECOMMENDATIONS AND DISCUSSION: Recommend to continue current management. Continue with the IV antibiotics. Possible outpatient antibiotics. Culture showed Porphyromonas and as well as beta-hemolytic strep G. We will continue to monitor. Dr. Galvez will follow tomorrow. MMODL / IJN: [id number] /
[2025-05-01 08:54] VITALS: BP 103/70; PULSE 87; TEMP 98.7
--- NOTE | 2025-05-01 09:00 | P.PN ---
Subjective Progress Note Date: 05/01/25 Principal diagnosis: Reason for follow-up is right middle finger dog bite/tenosynovitis This is a 50-year-old female who presented to the emergency department with complaints of an infected dog bite to the right middle finger. Patient had failed outpatient treatment with Augmentin and doxycycline. Patient seen and evaluated by infectious disease who is recommending a midline placement for IV antibiotics at discharge. Patient seen this morning sitting up in bed resting comfortably. She reports the swelling of her finger is improving and she is feeling a lot better. Objective - Vital Signs Vital signs: Vital Signs Temp 98.7 F 05/01/25 07:39 Pulse 87 05/01/25 07:39 Resp 16 05/01/25 07:39 BP 103/70 05/01/25 07:39 Pulse Ox 95 05/01/25 07:39 FiO2 Intake & Output 04/30/25 05/01/25 05/01/25 18:59 06:59 18:59 Other: Voiding Method Toilet Toilet # Voids 4 2 - Constitutional General appearance: Present: cooperative, no acute distress - EENT Eyes: Present: PERRLA - Neck Neck: Present: normal ROM. Absent: lymphadenopathy, rigidity - Respiratory Respiratory: bilateral: CTA - Cardiovascular Heart sounds: normal: S1, S2 - Gastrointestinal General gastrointestinal: Present: soft. Absent: tenderness - Integumentary Integumentary Comment(s): Right middle finger with improving swelling, no drainage noted. - Psychiatric Psychiatric: Present: A&O x's 3, appropriate affect, intact judgment & insight - Labs CBC & Chem 7: 04/30/25 02:31 05/01/25 02:29 Labs: Abnormal Lab Results - Last 24 Hours (Table) 04/30/25 Range/Units 02:31 Anion Gap 12.50 H (4.00-12.00) mmol/L BUN/Creatinine Ratio 22.25 H (12.00-20.00) Ratio Microbiology - Last 24 Hours (Table) 04/27/25 13:32 Blood Culture - Preliminary Blood 04/27/25 17:26 Anaerobic Culture - Preliminary Hand - Right Porphyromonas gingivalis 04/27/25 17:26 Gram Stain - Final Hand - Right Wound Culture - Final Beta Hemolytic Strep Group G Assessment and Plan (1) Dog bite Status: Acute Code(s): W54.0XXA - BITTEN BY DOG, INITIAL ENCOUNTER SNOMED Code(s): 367180101 (2) Flexor tenosynovitis of finger Status: Acute Code(s): M65.949 - UNSPECIFIED SYNOVITIS AND TENOSYNOVITIS, UNSPECIFIED HAND SNOMED Code(s): 294417399 (3) Allergy to multiple antibiotics Status: Acute Code(s): Z88.1 - ALLERGY STATUS TO OTHER ANTIBIOTIC AGENTS SNOMED Code(s): 193366348 Plan: Patient was personally seen and examined care discussed in detail with the resident physician documentation reviewed and agree,, patient with right middle finger infection/tenosynovitis status post I&D culture with group B strep patient had multiple antibiotic allergy plan is for midline and a 10-day course of IV daptomycin and oral Flagyl and close outpatient follow-up multiple question concern answered ronak perkins MD Patient seen and evaluated by nurse practitioner, physician in agreement with plan. Time with Patient: Less than 30
--- NOTE | 2025-05-01 11:03 | P.PN ---
Subjective Progress Note Date: 05/01/25 Reason for follow-up is right middle finger dog bite/tenosynovitis Patient is a 50-year-old female with a past medical history significant for reflux recently did have a dog bite to the right middle finger with subsequent involvement of abscess and cellulitis failing outpatient oral Augmentin and doxycycline therapy status post debridement by orthopedics. 05/01/2025 patient seen and examined at bedside. No acute events overnight. Denied any new complaints or symptoms. Right third digit swollen but with improved range of motion per patient. Labs: Creatinine 0.66 Objective - Vital Signs Vital signs: Vital Signs Temp 98.1 F 05/01/25 00:46 Pulse 79 05/01/25 00:46 Resp 16 05/01/25 00:46 BP 119/74 05/01/25 00:46 Pulse Ox 96 05/01/25 00:46 FiO2 Intake & Output 04/30/25 05/01/25 05/01/25 18:59 06:59 18:59 Other: Voiding Method Toilet Toilet # Voids 4 2 - Exam Physical examination: Vital signs reviewed General: non toxic, no distress, appears at stated age Head: atraumatic, normocephalic, symmetric Mouth: no lip lesion, mucus membranes moist Cardiovascular: S1S2 reg, no murmur Lungs: CTA bilateral, no rhonchi, no rales, no accessory muscle use Abdominal: soft, nondistended, nontender to palpation, no guarding Ext: muscle strength 5 out of 5 in all 4 extremities grossly, no gross muscle atrophy, no contractures, positive dorsalis pedis pulse bilateral, no edema, right third digit swollen with improved range of motion per patient, slight blood noted at puncture site, erythema improved Neuro: no gross focal neuro deficits Psych: Alert and oriented x3, appropriate affect and mood - Labs CBC & Chem 7: 04/30/25 02:31 05/01/25 02:29 Labs: Abnormal Lab Results - Last 24 Hours (Table) 04/30/25 Range/Units 02:31 Anion Gap 12.50 H (4.00-12.00) mmol/L BUN/Creatinine Ratio 22.25 H (12.00-20.00) Ratio Microbiology - Last 24 Hours (Table) 04/27/25 13:32 Blood Culture - Preliminary Blood 04/27/25 17:26 Anaerobic Culture - Preliminary Hand - Right Porphyromonas gingivalis 04/27/25 17:26 Gram Stain - Final Hand - Right Wound Culture - Final Beta Hemolytic Strep Group G Assessment and Plan (1) Allergy to multiple antibiotics Status: Acute Code(s): Z88.1 - ALLERGY STATUS TO OTHER ANTIBIOTIC AGENTS SNOMED Code(s): 750922939 (2) Dog bite Status: Acute Code(s): W54.0XXA - BITTEN BY DOG, INITIAL ENCOUNTER SNOMED Code(s): 406639867 (3) Flexor tenosynovitis of finger Status: Acute Code(s): M65.949 - UNSPECIFIED SYNOVITIS AND TENOSYNOVITIS, UNSPECIFIED HAND SNOMED Code(s): 953480952 Plan: patient is in the hospital with extensive infection to the right middle finger in this patient did have a history of dog bite causing this injury subsequently seem to have a problem with oral Augmentin that was switched to doxycycline now with worsening infection will need to cover for the polymicrobial florentino of the dog mouth causing this abscess and cellulitis and concern for tenosynovitis -patient with multiple antibiotic ALLERGIES that would limit the number of antibiotic safe to use -patient local culture growing group G strep and anaerobe. Patient to continue with the vancomycin and Flagyl. Plan placement of midline today. Plan on short course of IV antibiotic on discharge Thank you for this consult. Will follow patient along with you. Mojgan Yoo MD PGY-2 Infectious disease service Patient was personally seen and examined care discussed in detail with the resident physician documentation reviewed and agree, plan is to get a midline and a 10-day course of IV daptomycin and oral Flagyl on discharge and close outpatient follow-up Dictation was produced using [employer] dictation software. please excuse any grammatical, word or spelling errors. Time with Patient: Less than 30
--- NOTE | 2025-05-01 11:57 | P.PN ---
Progress Note - Text Progress Note Date: 05/01/25 Orthopedics: History of present illness: Patient very pleasant 50-year-old female who is seen examined at bedside for follow-up evaluation of her right middle finger. She is status post right middle finger superficial abscess. Irrigation and debridement of she has continued to improve since yesterday with antibiotics. She had better range of motion of her finger. She continues to have some swelling but it has improved. She is continue with Betadine soaks 3 times per day. She is continue with elevation. She feels ready for discharge. She has been seen and examined by infectious disease. Cultures have returned and were positive for Porphyromonas gingivalis and beta-hemolytic strep group G. Infectious disease has cleared the patient for discharge today with antibiotics for home use. Physical Exam: Patient is awake, alert, and oriented 3 Vital signs stable Some ongoing swelling of the right middle finger Normal sensation at the proximal phalanx of the right middle finger Some reduced sensation over the middle and distal phalanx of the right middle finger No active drainage from the previous incision and drainage sites Some tenderness with palpation along the flexor tendon sheath Intact active flexion extension at both the PIP and DIP joints Assessment: Right middle finger superficial abscess Right middle finger pain and swelling Status post bedside incision and drainage of right middle finger superficial abscess Plan: 1. Patient had presented with a right middle finger superficial abscess and underwent bedside incision and drainage. She has been on antibiotics per infectious disease. She has continued to improve during her admission to the hospital. She is currently cleared for discharge from an orthopedic standpoint. She has been cleared by infectious disease for discharge. She is admitted to medicine. They are planning for discharge home today. 2. Patient should continue with treatment for her right middle finger at home. She should continue with Betadine soaks 3 times daily. She should keep her wound sites covered while not doing Betadine soaks. She should continue to keep her right hand elevated. She should avoid strenuous activities and lifting greater than 3 pounds with her right hand and upper extremity. We discussed she may return to work as her work does not require any strenuous activities with her right upper extremity. She states she is also able to keep her wound sites clean dry and intact while working. 3. She will follow-up with Dr. Silvio Osuna at [facility] in 1 week for further evaluation.
--- NOTE | 2025-05-01 13:55 | P.DS ---
Providers Date of admission: 04/27/25 17:11 Attending physician: Dustin Galvez Consults: 04/27/25 16:53 Consult Physician Urgent Consulting Provider: Silvio Osuna Consult Reason/Comments: Flexor tenosynovitis Do you want consulting provider notified?: Yes Consult Physician Urgent Consulting Provider: Stone Walker Consult Reason/Comments: Flexor tenosynovitis Do you want consulting provider notified?: Yes Primary care physician: Dustin Galvez - Discharge Diagnosis(es) (1) Dog bite Current Visit: Yes Status: Acute (2) Flexor tenosynovitis of finger Current Visit: Yes Status: Acute (3) Allergy to multiple antibiotics Current Visit: Yes Status: Acute Hospital Course: This is a 50-year-old female who presented to the emergency department with complaints of an infected dog bite to the right middle finger. Patient had failed outpatient treatment with Augmentin and doxycycline. Patient seen and evaluated by infectious disease who is recommending a midline placement for IV antibiotics at discharge. IV antibiotics have been arranged for daptomycin. Orthopedics has cleared patient for discharge. Patient may be discharged home today and follow the IV antibiotic recommendations from infectious disease. Patient seen and evaluated by nurse practitioner, physician in agreement with plan. Patient Condition at Discharge: Stable Plan - Discharge Summary Discharge Rx Participant: No New Discharge Prescriptions: New DAPTOmycin [Cubicin] 500 mg IV DAILY #10 each Continue buPROPion XL [Wellbutrin XL] 300 mg PO DAILY Fexofenadine HCl [Thao Allergy] 180 mg PO DAILY Discontinued Doxycycline Hyclate 100 mg PO BID Discharge Medication List Fexofenadine HCl [Thao Allergy] 180 mg PO DAILY 04/27/25 [History] buPROPion XL [Wellbutrin XL] 300 mg PO DAILY 04/27/25 [History] DAPTOmycin [Cubicin] 500 mg IV DAILY #10 each 05/01/25 [Rx] Follow up Appointment(s)/Referral(s): Silvio Ousna MD [STAFF PHYSICIAN] - 1 Week (Patient may follow-up with Dr. Silvio Osuna at [facility] in 1 week following discharge. ) Dustin Galvez MD [Primary Care Provider] - 1 Week Stone Walker MD [STAFF PHYSICIAN] - 1 Week & [facility],[place] [facility] [REFERRING] - 05/02/25 11:15 am Activity/Diet/Wound Care/Special Instructions: 1. Continue with Betadine soaks 3 times daily 2. Keep her wound sites covered while not doing Betadine soaks 3. Continue to keep her right hand elevated 4. Avoid strenuous activities and lifting greater than 3 pounds with her right hand and upper extremity. 5. Follow-up with Dr. Silvio Osuna at [facility] in 1 week for further evaluation. Discharge Disposition: HOME SELF-CARE
[2025-05-02] MEDS ORDERED: VANCOMYCIN TROUGH DUE 1 EACH MISC MISCELLANE ONE (03:00)
--- NOTE | 2025-05-03 12:22 | CDI ---
Documentation Clarification Form Date: 05/03/2025 12:11:25 PM From: Kandace Gipson Phone: Admit Date: 04/27/2025 05:11:00 PM Patient Name: Marleny Kessler Visit Number: [id number] Discharge Date: 05/01/2025 02:18:00 PM ATTENTION: The Clinical Documentation Specialists (CDI) and [facility] Coding Staff appreciate your assistance in clarifying documentation. Please respond to the clarification below the line at the bottom and electronically sign. The CDI & [facility] Coding staff will review the response and follow-up if needed. Please note: Queries are made part of the Legal Health Record. If you have any questions, please contact the author of this message via ITS. Doctor/Provider: Silvio Osuna There is documentation of . Right middle fingerirrigationanddebridementof superficialabscessat the level of the DIP joint and middle phalanx in 04/27 consult note Additional clarification is requested. History/Risk Factors: The patient is here is a 50-year-old white female with known history of depressionwhich is stable but not about 5 to 6 days ago struggled after being bit by the family dog. Thewounddid not heal appropriately hence she is now admitted. She tried to use appropriate local control with antibiotic treatment but it did not work. Debridementwas done and flexor tendontenosynovitisis noted. Clinical Indicators: After sterile preparation the right middle finger wasadministereda digital blockwith 1% lidocainewithoutepinephrine A 15 blade scalpel was then used to open her volarwoundand upon doing so there was immediate significant purulentdrainagewoundculture was obtained, the woundarea was then opened with a hemostat next the dorsalpuncturesite was opened with a 15 blade, only a small amount of purulent discharge was present at this location, manual manipulation of the finger was used to express further purulentdrainage.The wounds were then copiouslyirrigatedwith 1 L of normal saline and the wounds were left open in order to promote furtherdrainageand preventreaccumulation of anabscess. Treatment: midlline placed , IV antibiotics Continue with Betadine soaks 3 times daily .Keep herwoundsites covered while not doing Betadine soaks Continue to keep her right handelevated Can you please clarify depth of debridement ? [ x ] Skin [ x ] subcutaneous tissue and fascia [ ] Muscle [ ] tendon [ ] bone [ ] Other, please specify [ ] Unable to determine (Template Last Revised: December 2020) MTDD
== END 2025-05-01 14:18 | disposition home or self-care (01) | DRG 513 ==
LOC: EC 12:39 → 4SSUR 17:10 → OBSVTOIN 17:11 → 4SSUR 17:28
PROVIDERS: ADMIT Family Medicine; ATTEND Family Medicine
PROC: 0JDJ0ZZ Extraction of Right Hand Subcutaneous Tissue and Fascia, Open Approach (ICD-10-PCS; 2025-04-27)
PROC: 05HC33Z Insertion of Infusion Device into Left Basilic Vein, Percutaneous Approach (ICD-10-PCS; principal; 2025-05-01 10:15)
DX: M65.941 Unspecified synovitis and tenosynovitis, right hand (principal); L02.511 Cutaneous abscess of right hand; F32.A Depression, unspecified; K21.00 Gastro-esophageal reflux disease with esophagitis, without bleeding; L03.011 Cellulitis of right finger; W54.0XXA Bitten by dog, initial encounter; Z88.1 Allergy status to other antibiotic agents; Z91.040 Latex allergy status; Z88.5 Allergy status to narcotic agent; Z90.49 Acquired absence of other specified parts of digestive tract
CPT/HCPCS: 36410; 36415; 76937; 80048; 80053; 80202; 82565; 83605; 85025; 85652; 86140; 87040; 87070; 87075; 87205; 96365; 96366; 96368; 96375; 96376; 99285

== ENCOUNTER → 2025-05-02 | Outpatient (CLI) | payer MEDICAID ==
[~2025-05-02] MED LIST: SODIUM CHLORIDE 0.9% 250 ML in EMPTY BAG 1 BAG IV PRN
[2025-05-02] MEDS: SODIUM CHLORIDE 0.9% 500 ML 500 ML in EMPTY BAG 1 BAG IV PRN (11:25)
[2025-05-02 11:28] VITALS: BP 99/57; PULSE 88; RESP 16; TEMP 98.8
== END ==
LOC: PROCWHC3 11:10
PROVIDERS: ATTEND Internal Medicine Infectious Disease
DX: M65.949 Unspecified synovitis and tenosynovitis, unspecified hand (principal)
CPT/HCPCS: 96365; J0878